=== PATIENT | female | born 1980 | race Caucasian/White ===

== ENCOUNTER 2016-07-24 17:32 | Emergency (ER) | payer MEDICAID, OTHER ==
[~2016-07-24 17:32] MED LIST: AZIT250T3 PO
[2016-07-24 18:38] LABS: BACTERIA, URINE RARE /hpf; BLOOD, URINE NEG (NEG); COMMENT (UR) CULT NOT INDICATED; CULTURE IF INDICATED CULT NOT INDICATED; GLUCOSE,URINE NEG (NEG); KETONE, URINE NEG (NEG); MUCUS URINE FEW /lpf (OCC); NITRITE,URINE NEG (NEG); PH, URINE 6.5 (5.0-8.5); SQUAMOUS EPITHELIAL CELL URINE 2 /hpf (0-5); URINE COLOR LIGHT-YELLOW (YELLW/STRAW)
--- NOTE | 2016-07-24 18:47 | PD ---
HPI Chief Complaint Vaginal spotting, pelvic pressure Date Seen: Jul 24, 2016 Time Seen: 18:30 Travel History International Travel<30 Days: No Contact w/Intl Traveler<30Days: No Known Affected Area: No History of Present Illness HPI This is 6-year-old 0-2 at 27 weeks and 1 day of gestation, EDC 10/22/16, patient presents to labor and delivery with complaints of vaginal spotting and pelvic pressure. She denies cramping, contractions, leakage of fluids and vaginal bleeding. Patient reports presence of movement. care is with Dr. Gustafson, course is significant for morbid obesity and chronic hypertension. Patient denies having sex relations before the symptoms. Bedside ultrasound is performed fetus in breech presentation , movements is noted, normal amniotic fluids Para: 2 : 4 Miscarriage: 0 : 2 History Past Medical History Narrative Medical Significant for morbid obesity and chronic hypertension Obstetric History Obstetric History Spontaneous vaginal delivery 2, termination of 2 Past Surgical History Narrative Surgical Denies Surgical History: No Previous Surgery Family History Narrative Family History Denies Family History: Negative Social History Alcohol Use: No Tobacco Use: No Substance Abuse: No Allergies-Medications (Allergen,Severity, Reaction): Coded Allergies: No Known Allergies (Unverified , 07/04/16) Home Meds Active Scripts Azithromycin 250 Mg [id number] Mg PO DIRECTED #6 TAB Ref 0 Take 2 tabs (500 mg) on day 1 then 1 tab daily x 4 days. Prov:Padmini Krishna MD 07/04/16 Review of Systems Except as stated in HPI: all other systems reviewed are Neg Genitourinary: Discharge, Other (vaginal spotting, pelvic pressure) Physical Exam Narrative GENERAL: Well-nourished, well-developed patient. SKIN: Warm and dry. HEAD: Normocephalic and atraumatic. EYES: No scleral icterus. No injection or drainage. ENT: No nasal drainage noted. Mucous membranes pink. Airway patent. NECK: Supple, trachea midline. No JVD. CARDIOVASCULAR: Regular rate and rhythm without murmurs, gallops, or rubs. RESPIRATORY: Breath sounds equal bilaterally. No accessory muscle use. BREASTS: Bilateral exam showed no masses , no retractions, no nipple discharge. ABDOMEN/GI: Abdomen soft, gravid, non-tender, bowel sounds present, no rebound, no guarding Gravid to 27 weeks size Fundal Height: 27 cm GENITOURINARY: External Genitalia: intact and normal in appearance BUS glands: Normal Cervix: Closed, long, posterior, cervix appears friable and bleeds to touch, vaginal discharge is noted, sample is sent for wet prep profile Dilatation: Closed Effacement:. 30% Station: -3 Presentation: Breech Membranes: Intact Uterine Contractions: None FHT's: Category: one Baseline: 150s Reactive: Yes Variability: Moderate Decels: None EXTREMITIES: No cyanosis or edema. BACK: Nontender without obvious deformity. No CVA tenderness. NEUROLOGICAL: Awake and alert. Motor and sensory grossly within normal limits. Five out of 5 muscle strength in all muscle groups. Normal speech. Data Data Vital Signs Reviewed: Yes Orders Vital Signs (Adult) .ON ADMISSION (07/24/16 18:11) ^ Labor Status (07/24/16 18:11) Urinalysis - C+S If Indicated (07/24/16 18:11) ^ Non Stress Test (07/24/16 18:11) ^ Hydration (07/24/16 18:11) Wet Prep Profile (07/24/16 18:35) Fibronectin (07/24/16 18:35) MDM Medical Record Reviewed: Yes Diagnosis Diagnosis: Primary Impression: 27 weeks gestation of Additional Impressions: Spotting affecting in second trimester Bacterial vaginosis Disposition: 01 DISCHARGE HOME Condition: Stable Patient Instructions: Early Labor Signs (ED), General Instructions, Labor (ED) Additional Instructions: Will treat BV with flagyl 500mg PO BID x 7 days, prescription is given to patient. Patient instructed to return to labor and delivery if increase symptoms , cramping, contractions, leakage of fluid, vaginal bleeding or decreased movements. Drink plenty of fluids. Monitor kick counts. Keep office appointment as scheduled. Pelvic rest ,nothing in the vagina , no sex. Departure Forms: Tests/Procedures Dawson Arellano MD Jul 24, 2016 18:47
[2016-07-24 19:15] VITALS: RESP 18
[2016-07-24 20:00] VITALS: RESP 16
[2016-08-19] MEDS ORDERED: ZOFR4TAB PO (03:35)
[2016-08-19] MEDS ORDERED: CALNTAB (03:35)
[2016-08-19] MEDS ORDERED: LABE300T PO (03:35)
[2016-08-19] MEDS ORDERED: BABY ASPRIN PO (03:35)
[2016-08-19] MEDS ORDERED: VENTAER INH (03:35)
[2016-08-24] MEDS ORDERED: ASPI1TAB69 PO (16:36)
== END 2016-07-24 20:18 | disposition home or self-care (01) ==
LOC: HOBED 17:32
DX: O26.852 Spotting complicating pregnancy, second trimester (principal); O23.592 Infection of other part of genital tract in pregnancy, second trimester; N76.0 Acute vaginitis; Z3A.27 27 weeks gestation of pregnancy
CPT/HCPCS: 76815; 81001; 82731; 87210

== ENCOUNTER 2016-08-10 14:06 | Emergency (ER) | payer MEDICAID ==
--- NOTE | 2016-08-10 15:41 | PD ---
HPI Chief Complaint vaginal leaking, irritating cough Date Seen: Aug 10, 2016 Time Seen: 14:58 Travel History International Travel<30 Days: No Contact w/Intl Traveler<30Days: No Known Affected Area: No History of Present Illness HPI 36 yo at 29w4d c/o vaginal leaking x 1 episode, 2 hours ago, minimal fluid. Also c/o irritating cough since March, used Tagamet without assistance Para: 2 : 5 Miscarriage: 2 History Past Medical History Narrative Medical Asthma - asymptomatic for years Obstetric History Obstetric History x 2 Past Surgical History Narrative Surgical none Family History Family History: Negative Social History Alcohol Use: No Tobacco Use: No Substance Abuse: No Allergies-Medications (Allergen,Severity, Reaction): Coded Allergies: No Known Allergies (Unverified , 07/04/16) Home Meds Active Scripts Azithromycin 250 Mg [id number] Mg PO DIRECTED #6 TAB Ref 0 Take 2 tabs (500 mg) on day 1 then 1 tab daily x 4 days. Prov:Padmini Krishna MD 07/04/16 Physical Exam Narrative GENERAL: Well-nourished, well-developed patient. SKIN: Warm and dry. HEAD: Normocephalic and atraumatic. EYES: No scleral icterus. No injection or drainage. ENT: No nasal drainage noted. Mucous membranes pink. Airway patent. NECK: Supple, trachea midline. No JVD. CARDIOVASCULAR: Regular rate and rhythm without murmurs, gallops, or rubs. RESPIRATORY: Breath sounds equal bilaterally. No accessory muscle use. BREASTS: Bilateral exam showed no masses , no retractions, no nipple discharge. ABDOMEN/GI: Abdomen soft, non-tender, bowel sounds present, no rebound, no guarding Gravid to 37 weeks size Fundal Height: [-] GENITOURINARY: External Genitalia: intact and normal in appearance BUS glands: normal Cervix: [-] Dilatation: [-] Effacement: [-] Station: [-] Presentation: [-] Membranes: amnisure negative Uterine Contractions: none FHT's: Category: 1 Baseline: 135 Reactive: moderate Variability: moderate Decels: absent EXTREMITIES: No cyanosis or edema. BACK: Nontender without obvious deformity. No CVA tenderness. NEUROLOGICAL: Awake and alert. Motor and sensory grossly within normal limits. Five out of 5 muscle strength in all muscle groups. Normal speech. Data Data Orders Vital Signs (Adult) .ON ADMISSION (08/10/16 15:25) ^ Labor Status (08/10/16 15:25) Pamg-1 Test .ONCE (08/10/16 15:25) Labs Amnisure negative MDM Plan Follow up with primary OB - consider inhaled corticosteroids if necessary, no signs of wheezing or asthma exacerbation. Consider OTC Zyrtec Diagnosis Diagnosis: Primary Impression: 29 weeks gestation of Additional Impressions: Cough Intact amniotic membranes during in third trimester Lety Emery MD Aug 10, 2016 15:41
--- NOTE | 2016-08-10 16:32 | PD ---
HPI Chief Complaint leaking fluid, cough since March Date Seen: Aug 10, 2016 Time Seen: 15:00 Travel History International Travel<30 Days: No Contact w/Intl Traveler<30Days: No Known Affected Area: No History of Present Illness HPI 36yo at 29 week gestation here c/o fluid per vagina x 1, occurring 2 hours ago, single episode. Denies contractions. Irritating cough, no wheezing, since March. Used Tagamet per Dr Gustafson for possible reflux Para: 2 : 5 Allergies-Medications (Allergen,Severity, Reaction): Coded Allergies: No Known Allergies (Unverified , 07/04/16) Home Meds Active Scripts Azithromycin 250 Mg [id number] Mg PO DIRECTED #6 TAB Ref 0 Take 2 tabs (500 mg) on day 1 then 1 tab daily x 4 days. Prov:Padmini Krishna MD 07/04/16 Physical Exam Narrative GENERAL: Well-nourished, well-developed patient. SKIN: Warm and dry. HEAD: Normocephalic and atraumatic. EYES: No scleral icterus. No injection or drainage. ENT: No nasal drainage noted. Mucous membranes pink. Airway patent. NECK: Supple, trachea midline. No JVD. CARDIOVASCULAR: Regular rate and rhythm without murmurs, gallops, or rubs. RESPIRATORY: Breath sounds equal bilaterally. No accessory muscle use. BREASTS: Bilateral exam showed no masses , no retractions, no nipple discharge. ABDOMEN/GI: Abdomen soft, non-tender, bowel sounds present, no rebound, no guarding Gravid to [-] weeks size Fundal Height: [-] GENITOURINARY: External Genitalia: intact and normal in appearance BUS glands: [-] Cervix: [-] Dilatation: [-] Effacement: [-] Station: [-] Presentation: [-] Membranes: [intact or ruptured] Uterine Contractions: [-] FHT's: Category: [-] Baseline: [-] Reactive: [-] Variability: [-] Decels: [-] EXTREMITIES: No cyanosis or edema. BACK: Nontender without obvious deformity. No CVA tenderness. NEUROLOGICAL: Awake and alert. Motor and sensory grossly within normal limits. Five out of 5 muscle strength in all muscle groups. Normal speech. Data Data Orders Vital Signs (Adult) .ON ADMISSION (08/10/16 15:25) ^ Labor Status (08/10/16 15:25) Pamg-1 Test .ONCE (08/10/16 15:25) Lety Emery MD Aug 10, 2016 16:26
[2016-08-19] MEDS ORDERED: ZOFR4TAB PO (03:35)
[2016-08-19] MEDS ORDERED: CALNTAB (03:35)
[2016-08-19] MEDS ORDERED: LABE300T PO (03:35)
[2016-08-19] MEDS ORDERED: BABY ASPRIN PO (03:35)
[2016-08-19] MEDS ORDERED: VENTAER INH (03:35)
[2016-08-24] MEDS ORDERED: ASPI1TAB69 PO (16:36)
== END 2016-08-10 15:48 | disposition home or self-care (01) ==
LOC: HOBED 14:06
DX: O26.893 Other specified pregnancy related conditions, third trimester (principal); R05 Cough; Z3A.29 29 weeks gestation of pregnancy
CPT/HCPCS: 84112; 99283

== ENCOUNTER 2016-08-17 11:51 | Emergency (ER) | payer MEDICAID ==
[2016-08-17] VITALS (7 sets, daily range): BP systolic 126–148; BP diastolic 68–110; PULSE 114–127; RESP 18
[2016-08-17 12:32] LABS: HEMATOCRIT 35.5 % (35.0-46.0); MEAN CELL VOLUME 79.2 FL (80.0-100.0); MEAN CORPUSCULAR HEMOGLOBIN 26.6 PG (27.0-34.0); MEAN CORPUSCULAR HGB CONC 33.6 % (32.0-36.0); PLATELET COUNT 276 TH/MM3 (150-450); RED BLOOD COUNT 4.49 MIL/MM3 (4.00-5.30); RED CELL DISTRIBUTION WIDTH 14.4 % (11.6-17.2); REVIEW FLAG FINAL; WHITE BLOOD COUNT 12.1 TH/MM3 (4.0-11.0)
[2016-08-17 12:43] LABS: BLOOD, URINE NEG (NEG); CALCIUM OXALATE CRYSTALS,URINE OCC /hpf; GLUCOSE,URINE NEG (NEG); KETONE, URINE TRACE mg/dL (NEG); MUCUS URINE MANY /lpf (OCC); NITRITE,URINE NEG (NEG); SQUAMOUS EPITHELIAL CELL URINE 24 /hpf (0-5); URINE COLOR YELLOW (YELLW/STRAW)
[2016-08-17 12:47] LABS: BACTERIA, URINE MOD /hpf; COMMENT (UR) CULTURE INDICATED; CULTURE IF INDICATED CULTURE INDICATED
[2016-08-17 12:50] LABS: ALT (GPT) 18 U/L (10-53); ANION GAP 12 MEQ/L (5-15); AST (GOT) 7 U/L (15-37); BICARBONATE 20.4 MEQ/L (21.0-32.0); BLOOD UREA NITROGEN 6 MG/DL (7-18); CHLORIDE 105 MEQ/L (98-107); GLOMERULAR FILTRATION RATE 120 ML/MIN (>89); POTASSIUM 3.9 MEQ/L (3.5-5.1); SODIUM (NA) 137 MEQ/L (136-145); URIC ACID 2.7 MG/DL (2.6-6.0)
[2016-08-17 12:52] LABS: ALKALINE PHOSPHATASE 71 U/L (45-117); TOTAL BILIRUBIN ADULT 0.2 MG/DL (0.2-1.0)
--- NOTE | 2016-08-17 13:09 | PD ---
HPI Travel History International Travel<30 Days: No Contact w/Intl Traveler<30Days: No Known Affected Area: No History of Present Illness HPI This patient is a 36-year-old 5 para 2021 EDC is October 22, 2016 presently at 30 weeks and 4 days she was sent in from Dr. Mike office for a preeclamptic workup as her urine demonstrated a large amount of protein patient presently has hypertension and is on labetalol 400 mg by mouth twice a day Care she states has been unremarkable she has been treated for urinary tract infection in the past Presently no ruptured membranes no vaginal bleeding no alanis contractions States she has had a headache off and on mild headache it does respond to Tylenol yesterday had floaters in front of her eyes the baby is active History Past Medical History Narrative Medical No known drug allergies history of hypertension Obstetric History Obstetric History First baby born April 25, 1998 female infant weight 5 lbs. 5 oz. states she was born vaginally at 30 weeks patient had preeclampsia with this Second baby born [birth year], 1999 female weight 7 lbs. 8 oz. vaginal delivery uncomplicated Past Surgical History Surgical History: No Previous Surgery Family History Narrative Family History Both parents past with cancer Social History Alcohol Use: No Tobacco Use: No Substance Abuse: No Allergies-Medications (Allergen,Severity, Reaction): Coded Allergies: No Known Allergies (Unverified , 07/04/16) Home Meds Active Scripts Azithromycin 250 Mg [id number] Mg PO DIRECTED #6 TAB Ref 0 Take 2 tabs (500 mg) on day 1 then 1 tab daily x 4 days. Prov:Padmini Krishna MD 07/04/16 Review of Systems General / Constitutional: No: Fever, Weight Gain, Weight Loss, Chills, Other Eyes: Other (states she did see floaters yesterday) HENT: Headaches (headache has responded to Tylenol) Cardiovascular: No: Irregular Rhythm, Chest Pain or Discomfort, Palpitations, Tachycardia, Syncope, Varicosities, Edema, Cyanosis, Other Respiratory: Cough (patient presently has a cold) Gastrointestinal: No: Nausea, Vomiting, Diarrhea, Abdominal Pain, Hematemesis, Hematochezia, Constipation, Changes in Bowel Habits, Indigestion, Loss of Appetite, Other Genitourinary: No: Urgency, Frequency, Dysuria, Nocturia, Hematuria, Decreased Urinary Output, Oliguria, Hesitancy, Dribbling, Incontinence, Pelvic Pain, Dyspareunia, Discharge, Menorrhagia, Vaginal Bleeding, Other Musculoskeletal: No: Limited ROM, Weakness, Cramping, Edema, Pain, Other Skin: No Rash, No Itching, No Dryness, No Lumps, No Change in Pigmentation, No Change in Nails, No Alopecia, No Lesions, No Breast Lumps, No Breast Tenderness , No Breast Swelling, No Other Neurologic: No: Weakness, Dizziness, Syncope, Focal Abnormalities, Coordination Problem, Headache, Slurred Speech, Seizures, Other Physical Exam Narrative GENERAL: Well-nourished, well-developed patient. Alert oriented 3 and cooperative in no acute distress EYES: No scleral icterus. No injection or drainage. Conjunctiva are pink ENT: No nasal drainage noted. Mucous membranes pink. Airway patent. Mucous membranes are moist CARDIOVASCULAR: Regular rate and rhythm without murmurs, gallops, or rubs. RESPIRATORY: Breath sounds equal bilaterally. No accessory muscle use. ABDOMEN/GI: Gravid consistent with stated gestational age, soft nontender no epigastric right upper quadrant tenderness no palpable contractions Gravid to [-] weeks size 30 weeks size Fundal Height: [-] GENITOURINARY: Pelvic exam is deferred as patient has no complaints of ruptured membranes or labor External Genitalia: intact and normal in appearance Membranes: [intact Uterine Contractions: [-]0 FHT's: Category: [-]1 Baseline: [-] 140 Reactive: [-] + Variability: [-] Moderate Decels: [-] 0 EXTREMITIES: No cyanosis or edema. 2+ reflexes NEUROLOGICAL: Awake and alert. Motor and sensory grossly within normal limits. Five out of 5 muscle strength in all muscle groups. Normal speech. Data Data Vital Signs Reviewed: Yes (initial blood pressure 133/91 patient tilted to her left side 137/68) Orders Vital Signs (Adult) .ON ADMISSION (08/17/16 12:04) ^ Labor Status (08/17/16 12:04) Urinalysis - C+S If Indicated (08/17/16 12:04) ^ Hydration (08/17/16 12:04) Cbc No Diff, Includes Plts (08/17/16 12:04) Comprehensive Metabolic Panel (08/17/16 12:04) Uric Acid (08/17/16 12:04) Urine Culture (08/17/16 12:05) Labs Laboratory Tests Test 08/17/16 08/17/16 12:05 12:10 Urine Color YELLOW Urine Turbidity HAZY Urine pH 6.0 Urine Specific [place] 1.033 Urine Protein 100 Urine Glucose (UA) NEG Urine Ketones TRACE Urine Occult Blood NEG Urine Nitrite NEG Urine Bilirubin NEG Urine Urobilinogen 2.0 Urine Leukocyte Esterase SMALL Urine RBC 1 Urine WBC 8 Urine Squamous Epithelial 24 Cells Urine Calcium Oxalate Crystals OCC Urine Bacteria MOD Urine Mucus MANY Microscopic Urinalysis Comment CULTURE INDICATED White Blood Count 12.1 Red Blood Count 4.49 Hemoglobin 11.9 Hematocrit 35.5 Mean Corpuscular Volume 79.2 Mean Corpuscular Hemoglobin 26.6 Mean Corpuscular Hemoglobin 33.6 Concent Red Cell Distribution Width 14.4 Platelet Count 276 Mean Platelet Volume 9.2 Sodium Level 137 Potassium Level 3.9 Chloride Level 105 Carbon Dioxide Level 20.4 Anion Gap 12 Blood Urea Nitrogen 6 Creatinine 0.57 Estimat Glomerular Filtration 120 Rate Random Glucose 114 Uric Acid 2.7 Calcium Level 8.8 Total Bilirubin 0.2 Aspartate Amino Transf 7 (AST/SGOT) Alanine Aminotransferase 18 (ALT/SGPT) Alkaline Phosphatase 71 Total Protein 6.9 Albumin 2.7 Date/Time Procedure Status Source Growth 08/17/16 12:05 Urine Culture Received Urine Clean Catch Pending MDM Medical Record Reviewed: No Interpretation(s) 36-year-old at 30 weeks and 4 days Not in labor History of hypertension on labetalol 400 mg by mouth twice a day Obesity Culture indicated on urinalysis URI by history Plan Blood pressure every 15 minutes on left tilt Rule out superimposed preeclampsia on chronic hypertension We'll repeat the 24-hour urine for protein Discussed with Dr. Sj Gustafson in to see the patient states she may be discharged home Will begin a 24-hour urine tomorrow and bring into the office on Tuesday Diagnosis Diagnosis: Primary Impression: with 30 completed weeks gestation Additional Impressions: Chronic hypertension in obstetric context in second trimester Obesity Disposition: 01 DISCHARGE HOME Condition: Stable Patient Instructions: General Instructions Departure Forms: Tests/Procedures Jessie Jeff MD Aug 17, 2016 13:09
[2016-08-17] MEDS ORDERED: BETAMETHASONE SOD PHOS/ACETATE SUSP 30 MG/5 ML VIAL IM SCH (14:00)
[2016-08-17] MEDS ORDERED: BETAMETHASONE SOD PHOS/ACETATE SUSP 30 MG/5 ML VIAL IM ONE (14:00)
[2016-08-24] MEDS ORDERED: ASPI1TAB69 PO (16:36)
== END 2016-08-17 14:49 | disposition home or self-care (01) ==
LOC: HOBED 11:51
DX: O09.523 Supervision of elderly multigravida, third trimester (principal); O10.913 Unspecified pre-existing hypertension complicating pregnancy, third trimester; R80.9 Proteinuria, unspecified; Z3A.30 30 weeks gestation of pregnancy
CPT/HCPCS: 36415; 80053; 81001; 84550; 85027; 87086; 96372; 99284; J0702

== ENCOUNTER → 2016-08-18 | Outpatient (CLI) | payer MEDICAID ==
[~2016-08-18] MED LIST changes: +ASPI1TAB69 PO; +BABY ASPRIN PO; +BETAMETHASONE SOD PHOS/ACETATE SUSP 30 MG/5 ML VIAL IM ONE; +CALNTAB; +HYDR-3533 PO; +IBUP-232 PO; +LABE300T PO; +OXYC1TAB63 PO; +VENTAER INH; +ZOFR4TAB PO
== END ==
LOC: HPND 14:36
PROVIDERS: ATTEND Obstetrics & Gynecology
DX: O60.03 Preterm labor without delivery, third trimester (principal)
CPT/HCPCS: 96372; J0702

== ENCOUNTER 2016-08-19 01:37 | Observation (INO) | payer MEDICAID ==
[~2016-08-19] VITALS: Ht 157.5 cm; Wt 113.4 kg
[2016-08-19] VITALS (160 sets, daily range): BP systolic 129–162; BP diastolic 67–122; PULSE 62–119; RESP 18–34; TEMP 97.9–98.3; O2SAT 94–100
[~2016-08-19 01:37] MED LIST changes: -ASPI1TAB69 PO; -BABY ASPRIN PO; -BETAMETHASONE SOD PHOS/ACETATE SUSP 30 MG/5 ML VIAL IM ONE; -CALNTAB; -HYDR-3533 PO; -IBUP-232 PO; -LABE300T PO; -OXYC1TAB63 PO; -VENTAER INH; -ZOFR4TAB PO
--- NOTE | 2016-08-19 02:16 | PD ---
HPI Chief Complaint Elevated BP at home, JETT/ blurry vision. Date Seen: Aug 19, 2016 Travel History International Travel<30 Days: No Contact w/Intl Traveler<30Days: No Known Affected Area: No History of Present Illness HPI with [facility] 10/21/16, history of CHTN presents with reported elevated BP at home ( 160s/100s). Patient also reports JETT and seeing spots intermittently since yesterday. Did not try Tylenol. Currently taking Labetalol 400mg bid. Denies other problems this . Reports recently completing 24 hour urine, results unknown to patient. Para: 2 : 5 Last Menstrual Period: Aug 19, 2016 History Past Medical History Narrative Medical HTN, Asthma Obstetric History Obstetric History 1 FT / 1 PT - at 28 weeks complicated by Pre Eclampsia Past Surgical History Surgical History: No Previous Surgery Family History Narrative Family History Significant for HTN, CVA, Hyperlipidemia, DM, Renal disease, Colon Cancer Family History: Negative Social History Alcohol Use: No Tobacco Use: No Substance Abuse: No Allergies-Medications (Allergen,Severity, Reaction): Coded Allergies: No Known Allergies (Unverified , 07/04/16) Home Meds Active Scripts Azithromycin 250 Mg [id number] Mg PO DIRECTED #6 TAB Ref 0 Take 2 tabs (500 mg) on day 1 then 1 tab daily x 4 days. Prov:Padmini Krishna MD 07/04/16 Review of Systems Eyes: Blurred Vision HENT: Headaches Physical Exam Narrative GENERAL: Well-nourished, well-developed patient. SKIN: Warm and dry. HEAD: Normocephalic and atraumatic. EYES: No scleral icterus. No injection or drainage. ENT: No nasal drainage noted. Mucous membranes pink. Airway patent. NECK: Supple, trachea midline. No JVD. CARDIOVASCULAR: Regular rate and rhythm without murmurs, gallops, or rubs. RESPIRATORY: Breath sounds equal bilaterally. No accessory muscle use. BREASTS: Bilateral exam showed no masses , no retractions, no nipple discharge. ABDOMEN/GI: Abdomen soft, non-tender, bowel sounds present, no rebound, no guarding Gravid to [-] weeks size Fundal Height: [-] GENITOURINARY: External Genitalia: intact and normal in appearance BUS glands: [-] Cervix: Deferred Dilatation: [-] Effacement: [-] Station: [-] Presentation: [-] Membranes: [intact or ruptured] Uterine Contractions: [-] FHT's: Category: [1] Baseline: [130s] Reactive: [yes] Variability: [moderate] Decels: [none] EXTREMITIES: No cyanosis or edema. 2+ DTR Bilaterally BACK: Nontender without obvious deformity. No CVA tenderness. NEUROLOGICAL: Awake and alert. Motor and sensory grossly within normal limits. Five out of 5 muscle strength in all muscle groups. Normal speech. Data Data Vital Signs Reviewed: Yes Orders Pre Eclampsia labs Labs records reviewed. PNL: O+/negative, Rubella- Non immune, Hep B- negative, RPR- NR, HIV- negative MDM Interpretation(s) at 30w 6d with CHTN, Asthma with elevated BPs/JETT/visual changes Plan Will admit. Pre Eclampsia labs ordered. Will begin [address] Carmona notified. Diagnosis Diagnosis: Primary Impression: 30 WEEKS GESTATION OF Additional Impressions: Hypertension affecting in third trimester Asthma affecting , antepartum Karis Rogers MD Aug 19, 2016 02:16
[2016-08-19 02:39] LABS: BLOOD, URINE NEG (NEG); COMMENT (UR) CULT NOT INDICATED; CULTURE IF INDICATED CULT NOT INDICATED; GLUCOSE,URINE 70 mg/dL (NEG); KETONE, URINE NEG (NEG); MUCUS URINE FEW /lpf (OCC); NITRITE,URINE NEG (NEG); PH, URINE 6.5 (5.0-8.5); SQUAMOUS EPITHELIAL CELL URINE 1 /hpf (0-5); URINE COLOR LIGHT-YELLOW (YELLW/STRAW)
[2016-08-19 02:45] LABS: BASOPHIL % 0.1 % (0.0-2.0); HEMO FLAGS DIFF FINAL; LYMPH % 10.4 % (9.0-44.0); LYMPHOCYTE # 1.7 TH/MM3 (1.0-4.8); MEAN CELL VOLUME 80.4 FL (80.0-100.0); MEAN CORPUSCULAR HEMOGLOBIN 26.1 PG (27.0-34.0); MEAN CORPUSCULAR HGB CONC 32.5 % (32.0-36.0); NEUT % 83.5 % (16.0-70.0); PLATELET COUNT 268 TH/MM3 (150-450); RED BLOOD COUNT 3.98 MIL/MM3 (4.00-5.30); RED CELL DISTRIBUTION WIDTH 14.4 % (11.6-17.2); WHITE BLOOD COUNT 16.7 TH/MM3 (4.0-11.0)
[2016-08-19 02:47] LABS: URIC ACID 2.6 MG/DL (2.6-6.0)
[2016-08-19] MEDS ORDERED: SODIUM CHLORIDE 0.9% FLUSH 5 ML FLUSH IVF PRN (03:00)
[2016-08-19] MEDS ORDERED: VENTAER INH ×2 (03:35)
[2016-08-19] MEDS ORDERED: BABY ASPRIN PO ×2 (03:35)
[2016-08-19] MEDS ORDERED: LABE300T PO ×2 (03:35)
[2016-08-19] MEDS ORDERED: ZOFR4TAB PO ×2 (03:35)
[2016-08-19] MEDS ORDERED: CALNTAB ×2 (03:35)
[2016-08-19 04:28] LABS: ALT (GPT) 17 U/L (10-53); ANION GAP 13 MEQ/L (5-15); AST (GOT) 7 U/L (15-37); BICARBONATE 18.2 MEQ/L (21.0-32.0); BLOOD UREA NITROGEN 8 MG/DL (7-18); CHLORIDE 106 MEQ/L (98-107); GLOMERULAR FILTRATION RATE 128 ML/MIN (>89); POTASSIUM 4.1 MEQ/L (3.5-5.1); SODIUM (NA) 137 MEQ/L (136-145)
[2016-08-19 04:29] LABS: ALKALINE PHOSPHATASE 65 U/L (45-117); TOTAL BILIRUBIN ADULT 0.1 MG/DL (0.2-1.0)
[2016-08-19 08:17] LABS: BLOOD GAS BASE EXCESS -6.4 mmol/L (-2-2); BLOOD GAS CARBOXYHEMOGLOBIN 1.3 % (0-4); BLOOD GAS HCO3 18 mmol/L (22-26); BLOOD GAS METHEMOGLOBIN 0.9 % (0-2); BLOOD GAS O2 HGB SATURATION 96 % (90-100); BLOOD GAS OXYGEN CONTENT 14.6 Vol % (12.0-20.0); BLOOD GAS PCO2 29 mmHg (38-42); BLOOD GAS PO2 99 mmHg (61-120); BLOOD GAS TOTAL HGB 10.7 G/DL (12.0-16.0); TEMP CORR TO 98.6
[2016-08-19 08:18] LABS: CRITICAL VALUE NO; DRAW SITE RT RADIAL; FIO2 21 %; NUMBER OF ARTERIAL PUNCTURES 1; STAT YES; ULNAR PULSE PRESENT
[2016-08-19] MEDS: SODIUM CHLORIDE 0.9% FLUSH 5 ML FLUSH IVF SCH ×2 (09:00→21:00)
[2016-08-19] MEDS: MULTIVIT/MIN/PREN/FOL AC/IRON PRENATAL TAB PO SCH (09:00)
--- NOTE | 2016-08-19 09:02 | PD.OB.ANTE ---
Subjective Diagnosis: (1) Hypertension affecting in third trimester (2) Asthma affecting , antepartum (3) 30 weeks gestation of Diagnosis: Principal Interval History Called to see patient per request of Dr. Al secondary to increased respiratory rate and elevated BP. Patient without new complaints. Reports JETT/ visual changes improved. Patient denies SOB. No chest pain, no N/V. No other complaints at this time. Patient reports similar episodes of increased RR at home that typically resolve with rest. Reports good FM. Denies contractions/LOF/VB. Objective Vital Signs Vital Signs Date Time Temp Pulse Resp B/P Pulse Ox O2 Delivery O2 Flow Rate FiO2 08/19/16 08:38 32 08/19/16 08:37 115 144/72 08/19/16 08:35 111 08/19/16 08:30 110 08/19/16 08:25 111 08/19/16 08:20 108 08/19/16 08:10 114 08/19/16 07:57 31 08/19/16 07:55 106 08/19/16 07:50 104 08/19/16 07:45 107 08/19/16 07:40 107 08/19/16 07:35 105 08/19/16 07:30 107 08/19/16 07:29 34 08/19/16 07:27 98.2 08/19/16 07:26 108 162/93 08/19/16 05:59 20 08/19/16 05:24 101 142/74 08/19/16 03:45 20 08/19/16 03:45 18 08/19/16 03:44 107 156/79 08/19/16 03:25 103 137/122 Lab & Micro Results Test 08/19/16 08/19/16 08/19/16 08/19/16 01:50 02:15 05:06 08:05 Urine Color LIGHT-YELLOW Urine Turbidity CLEAR Urine pH 6.5 Urine Specific [place] 1.014 Urine Protein NEG mg/dL Urine Glucose (UA) 70 mg/dL Urine Ketones NEG mg/dL Urine Occult Blood NEG Urine Nitrite NEG Urine Bilirubin NEG Urine Urobilinogen LESS THAN 2.0 MG/DL Urine Leukocyte Esterase NEG Urine WBC 1 /hpf Urine Squamous Epithelial 1 /hpf Cells Urine Mucus FEW /lpf Microscopic Urinalysis Comment CULT NOT INDICATED White Blood Count 16.7 TH/MM3 Red Blood Count 3.98 MIL/MM3 Hemoglobin 10.4 GM/DL Hematocrit 32.0 % Mean Corpuscular Volume 80.4 FL Mean Corpuscular Hemoglobin 26.1 PG Mean Corpuscular Hemoglobin 32.5 % Concent Red Cell Distribution Width 14.4 % Platelet Count 268 TH/MM3 Mean Platelet Volume 9.2 FL Neutrophils (%) (Auto) 83.5 % Lymphocytes (%) (Auto) 10.4 % Monocytes (%) (Auto) 6.0 % Eosinophils (%) (Auto) 0.0 % Basophils (%) (Auto) 0.1 % Neutrophils # (Auto) 14.0 TH/MM3 Lymphocytes # (Auto) 1.7 TH/MM3 Monocytes # (Auto) 1.0 TH/MM3 Eosinophils # (Auto) 0.0 TH/MM3 Basophils # (Auto) 0.0 TH/MM3 CBC Comment DIFF FINAL Differential Comment Sodium Level 137 MEQ/L Potassium Level 4.1 MEQ/L Chloride Level 106 MEQ/L Carbon Dioxide Level 18.2 MEQ/L Anion Gap 13 MEQ/L Blood Urea Nitrogen 8 MG/DL Creatinine 0.54 MG/DL Estimat Glomerular Filtration 128 ML/MIN Rate Random Glucose 145 MG/DL Uric Acid 2.6 MG/DL Calcium Level 8.3 MG/DL Total Bilirubin 0.1 MG/DL Aspartate Amino Transf 7 U/L (AST/SGOT) Alanine Aminotransferase 17 U/L (ALT/SGPT) Alkaline Phosphatase 65 U/L Lactate Dehydrogenase 114 U/L Total Protein 6.3 GM/DL Albumin 2.6 GM/DL Blood Type O POSITIVE Blood Gas Puncture Site RT RADIAL Blood Gas Patient Temperature 98.6 Blood Gas HCO3 18 mmol/L Blood Gas Base Excess -6.4 mmol/L Blood Gas Oxygen Saturation 96 % Arterial Blood pH 7.40 Arterial Blood Partial 29 mmHg Pressure CO2 Arterial Blood Partial 99 mmHg Pressure O2 Arterial Blood Oxygen Content 14.6 Vol % Arterial Blood 1.3 % Carboxyhemoglobin Arterial Blood Methemoglobin 0.9 % Blood Gas Hemoglobin 10.7 G/DL Oxygen Delivery Device Blood Gas Inspired Oxygen 21 % Physical Exam GENERAL: Well-nourished, well-developed patient. CARDIOVASCULAR: Regular rate and rhythm without murmurs, gallops, or rubs. RESPIRATORY: Breath sounds equal bilaterally. No accessory muscle use. CTA bilaterally ABDOMEN/GI: Abdomen soft, non-tender. Fundus: [-] GENITOURINARY: External Genitalia: intact and normal in appearance Cervix: [-] Dilatation: [-] Effacement: [-] Station: [-] Presentation: [-] Membranes: [-] Uterine Contractions: [none] FHT's: Category: [1] Baseline: [150s] Reactive: [-] Variability: [moderate] Decels: [none] EXTREMITIES: No cyanosis or edema, non-tender, without signs of DVT. Assessment and Plan Assessment and Plan Continue pulse Ox. Chest XRay. Patient's current status d/wDr. Sj, to continue patient's care. Karis Rogers MD Aug 19, 2016 09:02
[2016-08-19] MEDS ORDERED: ZOLPIDEM TARTRATE 5 MG TAB PO ONE (09:15)
[2016-08-19] MEDS ORDERED: ONDANSETRON HCL 4 MG/2 ML VIAL IV PUSH ONE (09:15)
[2016-08-19] MEDS ORDERED: LABETALOL HCL 200 MG TAB PO SCH (09:45)
[2016-08-19] MEDS: ONDANSETRON ODT 4 MG TAB PO PRN (09:47)
--- NOTE | 2016-08-19 10:07 | RADRPT ---
EXAM DATE/TIME: 08/19/2016 08:02 [facility] COMPARISON: CHEST SINGLE AP, July 04, 2016, 16:36. INDICATIONS : Shortness of breath. MEDICAL HISTORY : Hypertension. Asthma. SURGICAL HISTORY : None. ENCOUNTER: Initial ACUITY: 2 weeks PAIN SCORE: 0/10 LOCATION: Bilateral chest FINDINGS: A single view of the chest demonstrates the lungs to be symmetrically aerated without evidence of mas s, infiltrate or effusion. The cardiomediastinal contours are unremarkable. Osseous structures are intact. CONCLUSION: No acute disease. Dex Brown MD on August 19, 2016 at 10:06 Board Certified Radiologist. This report was verified electronically.
--- NOTE | 2016-08-19 13:36 | HHI.PR ---
Subjective Remarks Doing better this afternoon. Did not take her inhaler today. Good FM. No ROM or bleeding. Objective Vital Signs Date Time Temp Pulse Resp B/P Pulse Ox O2 Delivery O2 Flow Rate FiO2 08/19/16 13:10 115 100 08/19/16 13:05 113 100 08/19/16 13:00 107 28 132/85 99 08/19/16 12:55 109 99 08/19/16 12:50 96 08/19/16 12:50 103 08/19/16 12:45 96 08/19/16 12:45 103 08/19/16 12:40 103 08/19/16 12:40 96 08/19/16 12:35 101 08/19/16 12:35 96 08/19/16 12:30 98 08/19/16 12:30 101 08/19/16 12:25 101 97 08/19/16 12:20 103 96 08/19/16 12:15 102 97 08/19/16 12:10 97 96 08/19/16 12:05 95 94 08/19/16 12:00 98 94 08/19/16 11:50 98 96 08/19/16 11:47 28 08/19/16 11:46 32 08/19/16 11:45 104 131/84 08/19/16 11:45 99 08/19/16 11:35 108 08/19/16 11:35 99 08/19/16 11:30 105 08/19/16 11:30 97 08/19/16 11:25 103 08/19/16 11:25 97 08/19/16 11:20 97 08/19/16 11:20 105 08/19/16 11:15 98 08/19/16 11:15 104 08/19/16 11:10 104 08/19/16 11:10 99 08/19/16 11:05 104 08/19/16 11:05 100 08/19/16 11:00 100 08/19/16 11:00 104 08/19/16 10:55 100 08/19/16 10:55 104 08/19/16 10:50 104 08/19/16 10:50 100 08/19/16 10:45 100 08/19/16 10:45 104 08/19/16 10:40 100 08/19/16 10:40 104 08/19/16 10:38 25 08/19/16 10:35 106 9 10:35 100 08/19/16 10:30 100 08/19/16 10:30 108 17 10:25 100 917 10:25 108 917 10:22 28 08/19/16 10:20 101 08/19/16 10:20 100 08/19/16 10:15 100 08/19/16 10:15 104 08/19/16 10:10 101 08/19/16 10:10 100 08/19/16 10:05 103 08/19/16 10:05 100 08/19/16 10:00 100 08/19/16 10:00 102 08/19/16 09:55 100 08/19/16 09:55 119 08/19/16 09:51 32 08/19/16 09:50 100 08/19/16 09:50 113 08/19/16 09:46 105 158/88 08/19/16 09:45 110 08/19/16 09:45 100 08/19/16 09:40 102 08/19/16 09:40 98 08/19/16 09:35 98 08/19/16 09:35 100 08/19/16 09:30 101 08/19/16 09:30 99 08/19/16 09:25 99 08/19/16 09:25 100 08/19/16 09:20 99 08/19/16 09:20 97 08/19/16 09:15 97 08/19/16 09:15 98 08/19/16 09:10 100 08/19/16 09:10 105 08/19/16 09:05 111 08/19/16 09:05 100 08/19/16 08:50 100 08/19/16 08:50 110 08/19/16 08:45 108 08/19/16 08:45 100 08/19/16 08:40 116 08/19/16 08:40 100 08/19/16 08:38 32 08/19/16 08:37 115 144/72 08/19/16 08:35 111 08/19/16 08:35 100 08/19/16 08:30 110 08/19/16 08:30 99 08/19/16 08:25 111 08/19/16 08:25 99 08/19/16 08:20 108 08/19/16 08:20 98 08/19/16 08:10 100 08/19/16 08:10 114 08/19/16 07:57 31 08/19/16 07:55 97 08/19/16 07:55 106 08/19/16 07:50 104 08/19/16 07:50 97 08/19/16 07:45 97 08/19/16 07:45 107 08/19/16 07:40 107 08/19/16 07:40 97 08/19/16 07:35 98 08/19/16 07:35 105 08/19/16 07:30 107 08/19/16 07:30 99 08/19/16 07:29 34 08/19/16 07:27 98.2 08/19/16 07:26 108 162/93 08/19/16 05:59 20 08/19/16 05:24 101 142/74 08/19/16 03:45 20 08/19/16 03:45 18 08/19/16 03:44 107 156/79 08/19/16 03:25 103 137/122 Result Diagram: 08/19/1621408/19/16214 Other Results WDWN no acute distress. Chest is perfectly clear good air movement. CV Borderline tachycardic Abd is gravid and NT Ext Small LE edema Assessment and Plan Assessment and Plan IUP @ 30w 6d Chronic hypertension..Possible early pre eclampsia. Will increase her labetalol to 600mg bid. Follow BP now. Check her labs in the am. Tachypnea She does have asthma and will give her a breathing treatment as her blood gas is good I think she is just anxious. Anxiety. Will try to get her some sleep tonite and re evaluate the labs and her in the morning. Elizabeth Gustafson MD Aug 19, 2016 13:36
[2016-08-19] MEDS ORDERED: LABETALOL HCL 100 MG TAB PO ONE (15:15)
[2016-08-19] MEDS: RESP: ALBUTEROL 1.25 MG/3 ML NEB (PRN) NEB (15:25)
[2016-08-19] MEDS ORDERED: ZOLPIDEM TARTRATE 5 MG TAB PO PRN (18:45)
[2016-08-19] MEDS: ASPIRIN 81 MG CHEW TAB PO SCH (19:13)
[2016-08-19] MEDS: LABETALOL HCL 300 MG TAB PO SCH (21:29)
[2016-08-20] VITALS (15 sets, daily range): BP systolic 135–156; BP diastolic 66–89; PULSE 100–113; RESP 20; TEMP 98.7; O2SAT 99–100
[2016-08-20] MEDS ORDERED: ACETAMINOPHEN 325 MG TAB PO ONE
[2016-08-20] MEDS ORDERED: ACETAMINOPHEN 325 MG TAB PO PRN (04:00)
[2016-08-20 05:53] LABS: AUTOMATED NEUTROPHIL # 9.2 TH/MM3 (1.8-7.7); BASOPHIL % 0.1 % (0.0-2.0); EOSINOPHIL # 0.1 TH/MM3 (0-0.4); EOSINOPHIL % 0.9 % (0.0-4.0); HEMATOCRIT 30.3 % (35.0-46.0); HEMO FLAGS DIFF FINAL; LYMPH % 22.2 % (9.0-44.0); LYMPHOCYTE # 3.1 TH/MM3 (1.0-4.8); MEAN CELL VOLUME 80.3 FL (80.0-100.0); MEAN CORPUSCULAR HEMOGLOBIN 26.3 PG (27.0-34.0); MEAN CORPUSCULAR HGB CONC 32.8 % (32.0-36.0); NEUT % 65.8 % (16.0-70.0); PLATELET COUNT 259 TH/MM3 (150-450); RED BLOOD COUNT 3.78 MIL/MM3 (4.00-5.30); RED CELL DISTRIBUTION WIDTH 14.6 % (11.6-17.2)
[2016-08-20 06:20] LABS: ALKALINE PHOSPHATASE 67 U/L (45-117); ALT (GPT) 13 U/L (10-53); ANION GAP 11 MEQ/L (5-15); AST (GOT) 5 U/L (15-37); BICARBONATE 21.9 MEQ/L (21.0-32.0); BLOOD UREA NITROGEN 8 MG/DL (7-18); CHLORIDE 105 MEQ/L (98-107); GLOMERULAR FILTRATION RATE 162 ML/MIN (>89); POTASSIUM 3.9 MEQ/L (3.5-5.1); SODIUM (NA) 138 MEQ/L (136-145); TOTAL BILIRUBIN ADULT 0.1 MG/DL (0.2-1.0); URIC ACID 2.6 MG/DL (2.6-6.0)
[2016-08-20] MEDS: RESP: ALBUTEROL 1.25 MG/3 ML NEB (PRN) NEB (06:34)
[2016-08-20] MEDS ORDERED: LABE300T PO (08:30)
[2016-08-20] MEDS ORDERED: HYDR-3533 PO (08:30)
[2016-08-20] MEDS: ASPIRIN 81 MG CHEW TAB PO SCH (08:34)
[2016-08-20] MEDS: MULTIVIT/MIN/PREN/FOL AC/IRON PRENATAL TAB PO SCH (08:34)
[2016-08-20] MEDS: ONDANSETRON ODT 4 MG TAB PO PRN (08:34)
[2016-08-20] MEDS: LABETALOL HCL 300 MG TAB PO SCH (08:34)
--- NOTE | 2016-08-20 09:01 | MH ---
cc: MARYSE SEGOVIA DATE OF ADMISSION: 08/19/2016 HISTORY OF PRESENT ILLNESS This is a 36-year-old female, 5, para 2, with estimated date of confinement of 10/21/2016, at 30+ weeks. She has chronic hypertension with reported elevated blood pressures at home 160s/100. She also reported a headache and some scotoma. She did not try Tylenol or any other medication. She is currently taking labetalol 200 mg, one p.o. b.i.d. She denies any other problems with this . She had a 24-hour urine which revealed 200 mg of protein that she turned in yesterday. She is being admitted to the hospital for evaluation of preeclampsia. PAST OB HISTORY She is para 1-1-2-2. She had one premature baby, one full-term and two SABs. She had a vaginal delivery at 28 weeks complicated by preeclampsia. PAST BODY HANGER HISTORY Her Pap smear was negative in October 2015. PAST SURGICAL HISTORY Negative. PAST MEDICAL HISTORY 1. Chronic hypertension. 2. Asthma. FAMILY HISTORY Her family history is remarkable for hypertension, hyperlipidemia, diabetes, renal disease and CVA. SOCIAL HISTORY She does not drink, smoke or take drugs. ALLERGIES No known drug allergies. MEDICATIONS Current medications are: 1. Labetalol 200 mg, one p.o. b.i.d. 2. Baby aspirin, one p.o. q. day. 3. vitamins, one p.o. q. day. REVIEW OF SYSTEMS She has a mild headache, not unusual in any way. She did have some scotoma which has resolved. She has no shortness of breath or chest pain or pressure. She reports good movement. No rupture of membranes or bleeding. PHYSICAL EXAMINATION GENERAL: A well-developed, well-nourished female in no acute distress resting comfortably in her bed. VITAL SIGNS: Blood pressure 132/85, pulse 107, respirations 28. Pulse oximetry is 99-100. HEENT: Normocephalic, atraumatic. NECK: Supple. Trachea is midline. CHEST: Clear to auscultation in all areas. HEART: Slightly tachycardic without any significant murmur. ABDOMEN: The abdomen is gravid, nontender. The fundus is nontender. The feels appropriate height. PELVIC: Exam is deferred. EXTREMITIES: There is slight lower extremity edema. She is really not edematous. DTRs are +2 and equal. LABORATORY DATA Her laboratory workup reveals a white count of 16, hemoglobin of 10, hematocrit oft 32. Her AST and ALT are normal. Her platelets are normal. Her uric acid is 2.6. Urine is negative for protein. She does have a little glucose. ASSESSMENT AND PLAN 1. Intrauterine at 30+ weeks. 2. Chronic hypertension, rule out pre and post preeclampsia. I would continue her medications, give her bed rest. She is extremely anxious and tired and this may be contributing. She does have tachycardia and I think we should run a TSH. Will keep her overnight and make sure that she is okay and see how she feels. 3. Iron deficient anemia; this is mild. May consider giving her some iron while she is here. 4. Advanced maternal age. Will follow her carefully. R. MD SOMMER Hernandez/CHELSIE /8:14 AM /8:40 AM
[2016-08-20 09:27] LABS: URINE TOTAL PROTEIN TIMED 14.2 MG/DL
--- NOTE | 2016-08-20 09:56 | HHI.DCPOC ---
Discharge Care Plan Diagnosis: (1) Hypertension affecting in third trimester (2) with 30 completed weeks gestation Report Symptoms to Your Doctor -Temperate above 100.5 degrees -Redness, of incision or excessive or foul smelling drainage -Unusual pain or calf pain -Increased vaginal bleeding -Painful or difficulty urinating -Feelings of extreme sadness or anxiety after 2 weeks Goals to Promote Your Health * To prevent worsening of your condition and complications * To maintain your health at the optimal level Directions to Meet Your Goals Take your medications as prescribed Follow your dietary instruction Follow activity as directed Ensure plenty of rest for recovery Drink fluids for hydration Keep your appointments as scheduled Take your immunizations and boosters as scheduled If your symptoms worsen call your PCP, if no PCP go to Urgent Care Center or Emergency Room Smoking is Dangerous to Your Health. Avoid second hand smoke Call the 24-hour crisis hotline for domestic abuse at Nereyda Scott Aug 20, 2016 09:56
--- NOTE | 2016-08-20 10:18 | PD.OB.ANTE ---
Subjective Diagnosis: (1) Hypertension affecting in third trimester (2) Asthma affecting , antepartum (3) 30 weeks gestation of Diagnosis: Principal Objective Vital Signs Vital Signs Date Time Temp Pulse Resp B/P Pulse Ox O2 Delivery O2 Flow Rate FiO2 08/20/16 08:10 101 08/20/16 08:05 100 08/20/16 08:00 102 08/20/16 04:58 20 08/20/16 04:58 98.7 08/20/16 04:56 105 135/66 08/20/16 00:05 20 08/19/16 22:55 20 08/19/16 22:54 108 144/67 08/19/16 20:16 98.0 08/19/16 20:16 20 08/19/16 20:15 115 129/72 08/19/16 19:21 22 08/19/16 19:20 107 154/96 08/19/16 19:15 110 100 08/19/16 19:10 106 99 08/19/16 19:05 104 100 08/19/16 19:00 108 08/19/16 19:00 100 08/19/16 18:55 109 99 08/19/16 18:50 107 100 08/19/16 18:45 106 100 08/19/16 18:40 106 100 08/19/16 18:35 105 100 08/19/16 18:30 102 99 08/19/16 18:25 103 99 08/19/16 18:20 105 99 08/19/16 18:15 105 100 08/19/16 18:10 110 100 08/19/16 18:05 102 100 08/19/16 18:00 106 100 08/19/16 17:55 105 100 08/19/16 17:50 104 100 08/19/16 17:45 106 99 08/19/16 17:40 108 100 08/19/16 17:35 109 100 08/19/16 17:30 108 100 08/19/16 17:25 115 100 08/19/16 17:20 97 99 08/19/16 17:15 97 98 08/19/16 17:10 97 99 08/19/16 17:05 94 100 08/19/16 16:55 102 100 08/19/16 16:50 107 100 08/19/16 16:45 113 100 08/19/16 16:40 109 100 08/19/16 16:35 109 100 08/19/16 16:30 111 100 08/19/16 16:25 111 100 08/19/16 16:20 114 100 08/19/16 16:15 117 99 08/19/16 16:12 98.3 08/19/16 16:11 22 08/19/16 16:10 112 139/83 99 08/19/16 16:10 109 08/19/16 16:09 115 147/76 08/19/16 16:05 110 100 08/19/16 16:00 115 99 08/19/16 15:55 62 95 08/19/16 15:50 111 100 08/19/16 15:45 112 100 08/19/16 15:40 113 100 08/19/16 15:35 114 100 08/19/16 15:30 114 100 08/19/16 15:25 114 100 08/19/16 15:20 113 100 08/19/16 15:15 116 100 08/19/16 15:10 114 99 08/19/16 15:05 119 100 08/19/16 15:00 111 100 08/19/16 14:55 112 141/99 98 08/19/16 14:55 114 08/19/16 14:54 24 08/19/16 14:54 109 32 142/92 08/19/16 14:50 113 100 08/19/16 14:45 100 08/19/16 14:45 107 08/19/16 14:40 111 08/19/16 14:40 100 08/19/16 14:35 108 08/19/16 14:35 100 08/19/16 14:30 100 08/19/16 14:30 109 08/19/16 14:25 102 08/19/16 14:25 100 08/19/16 14:20 109 08/19/16 14:20 100 08/19/16 14:15 105 100 08/19/16 14:10 111 100 08/19/16 14:05 112 100 08/19/16 14:00 110 100 08/19/16 13:55 110 100 08/19/16 13:50 109 100 08/19/16 13:45 108 100 08/19/16 13:40 109 100 08/19/16 13:35 115 99 08/19/16 13:30 108 100 08/19/16 13:25 102 99 08/19/16 13:20 105 99 08/19/16 13:10 115 100 08/19/16 13:05 113 100 08/19/16 13:00 107 28 132/85 99 08/19/16 12:55 109 99 08/19/16 12:50 96 08/19/16 12:50 103 08/19/16 12:45 96 08/19/16 12:45 103 08/19/16 12:40 103 08/19/16 12:40 96 08/19/16 12:35 101 08/19/16 12:35 96 08/19/16 12:30 98 08/19/16 12:30 101 08/19/16 12:25 101 97 08/19/16 12:20 103 96 08/19/16 12:15 102 97 08/19/16 12:10 97 96 08/19/16 12:05 95 94 08/19/16 12:00 98 94 08/19/16 11:50 98 96 08/19/16 11:47 28 08/19/16 11:46 32 08/19/16 11:45 104 131/84 08/19/16 11:45 99 08/19/16 11:35 108 08/19/16 11:35 99 08/19/16 11:30 105 08/19/16 11:30 97 08/19/16 11:25 103 08/19/16 11:25 97 08/19/16 11:20 97 08/19/16 11:20 105 08/19/16 11:15 98 08/19/16 11:15 104 08/19/16 11:10 104 08/19/16 11:10 99 08/19/16 11:05 104 08/19/16 11:05 100 08/19/16 11:00 100 08/19/16 11:00 97.9 08/19/16 11:00 104 08/19/16 10:55 100 08/19/16 10:55 104 08/19/16 10:50 104 08/19/16 10:50 100 08/19/16 10:45 100 08/19/16 10:45 104 08/19/16 10:40 100 08/19/16 10:40 104 08/19/16 10:38 25 08/19/16 10:35 106 08/19/16 10:35 100 08/19/16 10:30 100 08/19/16 10:30 108 08/19/16 10:25 100 08/19/16 10:25 108 08/19/16 10:22 28 08/19/16 10:20 101 08/19/16 10:20 100 08/19/16 10:15 100 08/19/16 10:15 104 08/19/16 10:10 101 08/19/16 10:10 100 08/19/16 10:05 103 08/19/16 10:05 100 08/19/16 10:00 100 08/19/16 10:00 102 Lab & Micro Results Test 08/20/16 08/20/16 03:00 04:55 Urine Total Volume 24 Hours 2150 ML Urine Total Protein 24 Hour 305 MG/24HR Creatinine 0.44 MG/DL 0.44 MG/DL White Blood Count 14.0 TH/MM3 Red Blood Count 3.78 MIL/MM3 Hemoglobin 9.9 GM/DL Hematocrit 30.3 % Mean Corpuscular Volume 80.3 FL Mean Corpuscular Hemoglobin 26.3 PG Mean Corpuscular Hemoglobin 32.8 % Concent Red Cell Distribution Width 14.6 % Platelet Count 259 TH/MM3 Mean Platelet Volume 9.2 FL Neutrophils (%) (Auto) 65.8 % Lymphocytes (%) (Auto) 22.2 % Monocytes (%) (Auto) 11.0 % Eosinophils (%) (Auto) 0.9 % Basophils (%) (Auto) 0.1 % Neutrophils # (Auto) 9.2 TH/MM3 Lymphocytes # (Auto) 3.1 TH/MM3 Monocytes # (Auto) 1.5 TH/MM3 Eosinophils # (Auto) 0.1 TH/MM3 Basophils # (Auto) 0.0 TH/MM3 CBC Comment DIFF FINAL Differential Comment Sodium Level 138 MEQ/L Potassium Level 3.9 MEQ/L Chloride Level 105 MEQ/L Carbon Dioxide Level 21.9 MEQ/L Anion Gap 11 MEQ/L Blood Urea Nitrogen 8 MG/DL Estimat Glomerular Filtration 162 ML/MIN Rate Random Glucose 96 MG/DL Uric Acid 2.6 MG/DL Calcium Level 8.1 MG/DL Total Bilirubin 0.1 MG/DL Aspartate Amino Transf 5 U/L (AST/SGOT) Alanine Aminotransferase 13 U/L (ALT/SGPT) Alkaline Phosphatase 67 U/L Total Protein 6.1 GM/DL Albumin 2.4 GM/DL Thyroid Stimulating Hormone 2.050 uIU/ML 3rd Gen Physical Exam GENERAL: Well-nourished, well-developed patient. CARDIOVASCULAR: Regular rate and rhythm without murmurs, gallops, or rubs. RESPIRATORY: Breath sounds equal bilaterally. No accessory muscle use. ABDOMEN/GI: Abdomen soft, non-tender. Fundus: [-] Membrane INTACT Uterine Contractions:NONE, ABD SOFT NONTENDER FHT's: 140-150'S, + VARIABILITY EXTREMITIES: No cyanosis or edema, non-tender, without signs of DVT. Assessment and Plan Problem List: (1) Hypertension affecting in third trimester Status: Acute (2) Asthma affecting , antepartum Status: Acute (3) 30 weeks gestation of Status: Acute Assessment and Plan PT LOOKS BETTER AND FEELING BETTER LABS AND BP STABLE PT CONTINUES WITH A COUGH SHE STATES X 3 WEEKS, LUNGS CLEAR, WILL GIVE LORTAB TO HELP PT DC HOME TODAY ON BEDREST WITH INSTRUCTIONS WHEN TO RETURN, EXPLAINED S/S OF PRE-ECLAMPSIA AND TO RETURN [facility], HAS AN APPT ON TUESDAY ROUTINE Nereyda Scott Aug 20, 2016 10:18
--- NOTE | 2016-08-20 10:24 | HHI.DCPOC ---
Discharge Care Plan Diagnosis: (1) with 30 completed weeks gestation (2) Hypertension affecting in third trimester Additional Problems RETURN TO HOSPITAL FOR SIGNS AND SYMPTOMS OF PRE-ECLAMPSIA INCLUDING SEVERE HEADACHE, FACIAL AND HAND SWELLING, VISUAL CHANGES AND OR SEEING SPOTS, PAIN UNDER RIBS THAT IS NOT THE BABY MOVING, IN GENERAL NOT FEELING WELL Report Symptoms to Your Doctor -Temperate above 100.5 degrees -Redness, of incision or excessive or foul smelling drainage -Unusual pain or calf pain -Increased vaginal bleeding -Painful or difficulty urinating -Feelings of extreme sadness or anxiety after 2 weeks Goals to Promote Your Health * To prevent worsening of your condition and complications * To maintain your health at the optimal level Directions to Meet Your Goals Take your medications as prescribed Follow your dietary instruction Follow activity as directed Ensure plenty of rest for recovery Drink fluids for hydration Keep your appointments as scheduled Take your immunizations and boosters as scheduled If your symptoms worsen call your PCP, if no PCP go to Urgent Care Center or Emergency Room Smoking is Dangerous to Your Health. Avoid second hand smoke Call the 24-hour crisis hotline for domestic abuse at Nereyda Scott Aug 20, 2016 10:24
[2016-08-20 10:41] LABS: CREAT 24 TIMED 62.8 MG/DL
[2016-08-24] MEDS ORDERED: ASPI1TAB69 PO (16:36)
== END 2016-08-20 11:45 | disposition home or self-care (01) ==
LOC: HOBED 01:37 → H2EA 02:48
PROVIDERS: ADMIT Obstetrics & Gynecology; ATTEND Obstetrics & Gynecology
DX: O16.3 Unspecified maternal hypertension, third trimester (principal); I10 Essential (primary) hypertension; H53.8 Other visual disturbances; Z3A.30 30 weeks gestation of pregnancy; R51 Headache; J45.909 Unspecified asthma, uncomplicated; R60.0 Localized edema; R53.83 Other fatigue; R00.0 Tachycardia, unspecified; O99.013 Anemia complicating pregnancy, third trimester; O09.523 Supervision of elderly multigravida, third trimester
CPT/HCPCS: 36600; 71010; 80053; 81001; 82575; 82805; 83615; 84157; 84443; 84550; 85025; 86592; 86900; 86901; 94640; 94664; 99284; G0378; J7613

== ENCOUNTER 2016-08-25 15:43 | Observation (INO) | payer MEDICAID ==
[2016-08-25] VITALS (7 sets, daily range): BP systolic 128–150; BP diastolic 66–93; PULSE 99–107; RESP 22
[~2016-08-25 15:43] MED LIST changes: +ASPI1TAB69 PO; -AZIT250T3 PO; +CALNTAB; +HYDR-3533 PO; +LABE300T PO; +VENTAER INH; +ZOFR4TAB PO
[2016-08-25] MEDS ORDERED: ONDANSETRON HCL 4 MG/2 ML VIAL IV ONE (16:45)
--- NOTE | 2016-08-25 17:08 | PD ---
HPI Chief Complaint not feeling well Date Seen: Aug 25, 2016 Travel History International Travel<30 Days: No Contact w/Intl Traveler<30Days: No History of Present Illness HPI 36 yo @ 31w5d with RUTH 10-22-2016. care with Dr. Gustafson. Patient with CHTN on Labetalol this . Patient seen yesterday at the clinic, BPs 140s/90s. She is on Labetalol 400mg po BID. This morning she "just did not feel well" and this afternoon felt her heart racing and has some nausea/vomiting x 1. She has had intermittent HAs, no RUQ pain. No UC, LOF, VB. +FM. She was evaluated in the [facility] and admitted for observation and a 24 hour urine last week. Her labs were wnl and the 24 hour urine noted 300mg of protein. History Past Medical History Narrative Medical CHTN Obesity Asthma Tachycardia Obstetric History Obstetric History 1997 and 1998 Past Surgical History Surgical History: No Previous Surgery Social History Alcohol Use: No Tobacco Use: No Substance Abuse: No Allergies-Medications (Allergen,Severity, Reaction): Coded Allergies: No Known Allergies (Unverified , 08/19/16) Home Meds Active Scripts Hydrocodone-Acetaminophen (Lortab)5-325 Mg Tab1 Tab PO Q4H #15 TAB Ref 0 Prov:Elizabeth Gustafson MD 08/20/16 Labetalol 300 Mg Req016 Mg PO Q12HR PRN (hypertension) #60 TAB Ref 4 Prov:Elizabeth Gustafson MD 08/20/16 Reported Medications Aspirin 81 Mg Tabdr81 Mg PO DAILY 08/24/16 Albuterol 18 GM Inh (Ventolin Hfa 18 GM Inh)90 Mcg/Act Aer2 Puff INH Q4H PRN ( SHORTNESS OF BREATH) #1 INHALER Ref 0 08/19/16 Ondansetron (Zofran)4 Mg Tab4 Mg PO Q6HR PRN (NAUSEA OR VOMITING) Ref 0 08/19/16 Vitamin (Calna)1 Tab Tab 08/19/16 Discontinued Reported Medications Labetalol 300 Mg [id number] Mg PO BID Ref 0 08/19/16 Review of Systems General / Constitutional: No: Fever, Chills Eyes: Visual changes (spots - no change in past weeks), No: Blurred Vision HENT: Headaches (no change in past weeks), No: Lightheadedness Cardiovascular: Tachycardia, No: Chest Pain or Discomfort, Palpitations Respiratory: Cough, No: Short of Breath Gastrointestinal: Nausea (resolved), Vomiting (x1), Abdominal Pain (LLQ x 1), No: Loss of Appetite (good appetite at this time) Genitourinary: No: Urgency, Frequency, Dysuria, Discharge, Vaginal Bleeding Skin: No Rash, No Itching Neurologic: Dizziness, No: Weakness, Syncope, Focal Abnormalities Physical Exam Narrative GENERAL: Well-nourished, well-developed patient. SKIN: Warm and dry. HEAD: Normocephalic and atraumatic. EYES: No scleral icterus. No injection or drainage. ENT: No nasal drainage noted. Mucous membranes pink. Airway patent. NECK: trachea midline. No JVD. CARDIOVASCULAR: Regular rate and rhythm without murmurs, gallops, or rubs. RESPIRATORY: Breath sounds equal bilaterally. No accessory muscle use. ABDOMEN/GI: Abdomen soft, non-tender, no rebound, no guarding Gravid TOCO: No UC FHT's: Category: II Baseline: 150 Reactive: +accelerations intermittently Variability: moderate Decels: has occasional deceleration without contraction followed by change in baseline 160s-170s for 20min, then resolved. EXTREMITIES: No cyanosis or edema. BACK: Nontender without obvious deformity. No CVA tenderness. NEUROLOGICAL: Awake and alert. Motor and sensory grossly within normal limits. Normal speech. Data Data Vital Signs Reviewed: Yes Orders Vital Signs (Adult) .ON ADMISSION (08/25/16 16:34) ^ Labor Status (08/25/16 16:34) Urinalysis - C+S If Indicated (08/25/16 16:34) ^ Non Stress Test (08/25/16 16:34) Cbc No Diff, Includes Plts (08/25/16 16:34) Comprehensive Metabolic Panel (08/25/16 16:34) Uric Acid (08/25/16 16:34) Lactated Ringer's 1000 Ml Inj (Lr 1000 M (08/25/16 16:34) Ondansetron Inj (Zofran Inj) (08/25/16 16:45) Labs Laboratory Tests Test 08/25/16 08/25/16 16:45 17:30 White Blood Count 10.3 TH/MM3 (4.0-11.0) Red Blood Count 4.21 MIL/MM3 (4.00-5.30) Hemoglobin 10.9 GM/DL (11.6-15.3) Hematocrit 33.4 % (35.0-46.0) Mean Corpuscular Volume 79.5 FL (80.0-100.0) Mean Corpuscular Hemoglobin 25.9 PG (27.0-34.0) Mean Corpuscular Hemoglobin 32.6 % Concent (32.0-36.0) Red Cell Distribution Width 14.5 % (11.6-17.2) Platelet Count 261 TH/MM3 (150-450) Mean Platelet Volume 9.1 FL (7.0-11.0) Sodium Level 134 MEQ/L (136-145) Potassium Level 3.8 MEQ/L (3.5-5.1) Chloride Level 104 MEQ/L (98-107) Carbon Dioxide Level 21.0 MEQ/L (21.0-32.0) Anion Gap 9 MEQ/L (5-15) Blood Urea Nitrogen 8 MG/DL (7-18) Creatinine 0.39 MG/DL (0.50-1.00) Estimat Glomerular Filtration 186 ML/MIN Rate (>89) Random Glucose 75 MG/DL (74-106) Uric Acid 2.7 MG/DL (2.6-6.0) Calcium Level 8.7 MG/DL (8.5-10.1) Total Bilirubin 0.2 MG/DL (0.2-1.0) Aspartate Amino Transf 14 U/L (15-37) (AST/SGOT) Alanine Aminotransferase 19 U/L (10-53) (ALT/SGPT) Alkaline Phosphatase 75 U/L (45-117) Total Protein 6.7 GM/DL (6.4-8.2) Albumin 2.6 GM/DL (3.4-5.0) Urine Color YELLOW (YELLW/STRAW) Urine Turbidity HAZY (CLEAR) Urine pH 6.5 (5.0-8.5) Urine Specific [place] 1.027 (1.002-1.035) Urine Protein 100 mg/dL (NEG-TRACE) Urine Glucose (UA) NEG mg/dL (NEG) Urine Ketones NEG mg/dL (NEG) Urine Occult Blood NEG (NEG) Urine Nitrite NEG (NEG) Urine Bilirubin NEG (NEG) Urine Urobilinogen LESS THAN 2.0 MG/DL (LESS THAN 2.0) Urine Leukocyte Esterase NEG (NEG) Urine RBC 6 /hpf (0-3) Urine WBC 2 /hpf (0-5) Urine Squamous Epithelial 14 /hpf (0-5) Cells Urine Calcium Oxalate Crystals MANY /hpf (NONE) Urine Hyaline Casts 1 /lpf (RARE) Urine Mucus MANY /lpf (OCC) Microscopic Urinalysis Comment CULT NOT INDICATED Vital Signs Date Time Temp Pulse Resp B/P Pulse Ox O2 Delivery O2 Flow Rate FiO2 08/25/16 18:31 100 132/66 08/25/16 18:15 102 128/76 08/25/16 18:00 101 132/80 08/25/16 17:46 99 138/72 08/25/16 17:31 105 142/89 MDM Narrative Course / MDM 31 weeks CHTN on Labetalol JETT, visual changes have been for past few weeks, and persistent. Had nausea/ vomiting x 1 today otherwise normal diet. BPs are mostly WNL Occasional deceleration with tachycardia, resolved Patient has had serial US in the clinic, normal per patient 24 hour urine last week 300mg/d CBC and CMP, WNL Plan Observation overnight Continuous monitoring Serial BPs US with OB Diagnostics/placenta grade/growth in AM s/p B-Methasone one week ago Physician Communication D/w Dr. Sj Borja,Danita Gramajo MD Aug 25, 2016 17:08
[2016-08-25] MEDS: LACTATED RINGER'S 1000 ML INJ 1,000 ML IV SCH (17:32)
[2016-08-25 17:59] LABS: HEMATOCRIT 33.4 % (35.0-46.0); MEAN CELL VOLUME 79.5 FL (80.0-100.0); MEAN CORPUSCULAR HEMOGLOBIN 25.9 PG (27.0-34.0); MEAN CORPUSCULAR HGB CONC 32.6 % (32.0-36.0); PLATELET COUNT 261 TH/MM3 (150-450); RED BLOOD COUNT 4.21 MIL/MM3 (4.00-5.30); RED CELL DISTRIBUTION WIDTH 14.5 % (11.6-17.2); REVIEW FLAG FINAL; WHITE BLOOD COUNT 10.3 TH/MM3 (4.0-11.0)
[2016-08-25 18:11] LABS: BLOOD, URINE NEG (NEG); CALCIUM OXALATE CRYSTALS,URINE MANY /hpf; COMMENT (UR) CULT NOT INDICATED; CULTURE IF INDICATED CULT NOT INDICATED; GLUCOSE,URINE NEG (NEG); HYALINE CAST, URINE 1 /lpf (RARE); KETONE, URINE NEG (NEG); MUCUS URINE MANY /lpf (OCC); NITRITE,URINE NEG (NEG); PH, URINE 6.5 (5.0-8.5); SQUAMOUS EPITHELIAL CELL URINE 14 /hpf (0-5); URINE COLOR YELLOW (YELLW/STRAW)
[2016-08-25 18:32] LABS: ANION GAP 9 MEQ/L (5-15); AST (GOT) 14 U/L (15-37); BLOOD UREA NITROGEN 8 MG/DL (7-18); CHLORIDE 104 MEQ/L (98-107); GLOMERULAR FILTRATION RATE 186 ML/MIN (>89); POTASSIUM 3.8 MEQ/L (3.5-5.1); SODIUM (NA) 134 MEQ/L (136-145); URIC ACID 2.7 MG/DL (2.6-6.0)
[2016-08-25 18:35] LABS: ALKALINE PHOSPHATASE 75 U/L (45-117); ALT (GPT) 19 U/L (10-53); TOTAL BILIRUBIN ADULT 0.2 MG/DL (0.2-1.0)
[2016-08-25] MEDS ORDERED: SODIUM CHLORIDE 0.9% FLUSH 5 ML FLUSH IVF PRN (19:00)
[2016-08-25] MEDS ORDERED: ONDANSETRON HCL 4 MG/2 ML VIAL IV PRN (19:00)
[2016-08-25] MEDS ORDERED: ALUMINUM/MAGNESIUM/SIMETH 30 ML CUP PO PRN (19:00)
[2016-08-25] MEDS ORDERED: ACETAMINOPHEN 325 MG TAB PO PRN (19:00)
[2016-08-25] MEDS: SODIUM CHLORIDE 0.9% FLUSH 5 ML FLUSH IVF SCH (21:00)
[2016-08-25] MEDS ORDERED: ZOLPIDEM TARTRATE 5 MG TAB PO PRN (21:00)
[2016-08-25] MEDS: LABETALOL HCL 300 MG TAB PO SCH ×2 (21:00→21:31)
[2016-08-25] MEDS: DOCUSATE SODIUM 100 MG CAP PO SCH (21:49)
[2016-08-25] MEDS ORDERED: RESP: ALBUTEROL 1.25 MG/3 ML NEB (PRN) NEB (22:15)
[2016-08-26] MEDS: LACTATED RINGER'S 1000 ML INJ 1,000 ML IV SCH ×2 (00:34→08:34)
[2016-08-26] MEDS: DOCUSATE SODIUM 100 MG CAP PO SCH (09:00)
[2016-08-26] MEDS: LABETALOL HCL 300 MG TAB PO SCH (09:00)
[2016-08-26] MEDS: SODIUM CHLORIDE 0.9% FLUSH 5 ML FLUSH IVF SCH (09:00)
--- NOTE | 2016-08-26 09:52 | HHI.DCPOC ---
Discharge Care Plan Diagnosis: (1) Hypertension affecting in third trimester Report Symptoms to Your Doctor -Temperate above 100.5 degrees -Redness, of incision or excessive or foul smelling drainage -Unusual pain or calf pain -Increased vaginal bleeding -Painful or difficulty urinating -Feelings of extreme sadness or anxiety after 2 weeks Goals to Promote Your Health * To prevent worsening of your condition and complications * To maintain your health at the optimal level Directions to Meet Your Goals Take your medications as prescribed Follow your dietary instruction Follow activity as directed Ensure plenty of rest for recovery Drink fluids for hydration Keep your appointments as scheduled Take your immunizations and boosters as scheduled If your symptoms worsen call your PCP, if no PCP go to Urgent Care Center or Emergency Room Smoking is Dangerous to Your Health. Avoid second hand smoke Call the 24-hour crisis hotline for domestic abuse at Nereyda Scott Aug 26, 2016 09:52
== END 2016-08-26 18:01 | disposition home or self-care (01) ==
LOC: HOBED 15:43 → H2EA 19:11
PROVIDERS: ADMIT Obstetrics & Gynecology; ATTEND Obstetrics & Gynecology
DX: O16.3 Unspecified maternal hypertension, third trimester (principal); J45.909 Unspecified asthma, uncomplicated; Z3A.31 31 weeks gestation of pregnancy
CPT/HCPCS: 76816; 76819; 76820; 80053; 81001; 84550; 85027; 96374; 99284; G0378; J2405; J7120

== ENCOUNTER 2016-09-14 11:41 | Emergency (ER) | payer MEDICAID ==
[2016-09-14] VITALS (26 sets, daily range): BP systolic 101–164; BP diastolic 37–95; PULSE 106–126; RESP 19–20; TEMP 98.1
[~2016-09-14 11:41] MED LIST changes: -HYDR-3533 PO
[2016-09-14 12:42] LABS: HEMATOCRIT 35.4 % (35.0-46.0); MEAN CELL VOLUME 79.1 FL (80.0-100.0); MEAN CORPUSCULAR HEMOGLOBIN 26.4 PG (27.0-34.0); MEAN CORPUSCULAR HGB CONC 33.4 % (32.0-36.0); PLATELET COUNT 266 TH/MM3 (150-450); RED BLOOD COUNT 4.48 MIL/MM3 (4.00-5.30); RED CELL DISTRIBUTION WIDTH 15.1 % (11.6-17.2); REVIEW FLAG FINAL; WHITE BLOOD COUNT 10.1 TH/MM3 (4.0-11.0)
[2016-09-14 12:53] LABS: BACTERIA, URINE OCC /hpf; BLOOD, URINE NEG (NEG); COMMENT (UR) CULTURE INDICATED; CULTURE IF INDICATED CULTURE INDICATED; GLUCOSE,URINE NEG (NEG); KETONE, URINE NEG (NEG); MUCUS URINE MANY /lpf (OCC); NITRITE,URINE NEG (NEG); PH, URINE 6.5 (5.0-8.5); SQUAMOUS EPITHELIAL CELL URINE 49 /hpf (0-5); URINE COLOR YELLOW (YELLW/STRAW)
[2016-09-14 12:59] LABS: AMPHETAMINE, URINE NEG (NEG); BARBITURATES, URINE NEG (NEG); COCAINE, URINE NEG (NEG)
--- NOTE | 2016-09-14 13:02 | PD ---
HPI Chief Complaint sent from office for r/out preeclampsia Date Seen: Sep 14, 2016 Time Seen: 12:45 Travel History International Travel<30 Days: No Contact w/Intl Traveler<30Days: No Known Affected Area: No History of Present Illness HPI Pt is a 36 y/o with IUP at 34.4 wks sent from office for preeclampsia workup. Pt reports BP in office 160s/100. reports + headache since yesterday, + visual changes/scotomata today, + swelling of hands/face. pt denies ruq pain. reports some lower ab cramping, ? contractions. pt denies lof, vb. +FM Para: 2 : 5 Miscarriage: 2 History Past Medical History Narrative Medical chronic hypertension, on unknown med prior to on labetalol during obesity Obstetric History Obstetric History SAB x 2 1997 at 35 wks, induced for preeclampsia 1998 full term , no comp Past Surgical History Surgical History: No Previous Surgery Family History Family History: Negative Social History Alcohol Use: No Tobacco Use: No Substance Abuse: No Allergies-Medications (Allergen,Severity, Reaction): Coded Allergies: No Known Allergies (Unverified , 08/19/16) Home Meds Active Scripts Labetalol 300 Mg [id number] Mg PO Q12HR PRN (hypertension) #60 TAB Ref 4 Prov:Elizabeth Gustafson MD 08/20/16 Reported Medications Aspirin 81 Mg Tabdr81 Mg PO DAILY 08/24/16 Albuterol 18 GM Inh (Ventolin Hfa 18 GM Inh)90 Mcg/Act Aer2 Puff INH Q4H PRN ( SHORTNESS OF BREATH) #1 INHALER Ref 0 08/19/16 Ondansetron (Zofran)4 Mg Tab4 Mg PO Q6HR PRN (NAUSEA OR VOMITING) Ref 0 08/19/16 Vitamin (Calna)1 Tab Tab 08/19/16 Review of Systems General / Constitutional: Weight Gain, Weight Loss, No: Chills, Other Eyes: Blurred Vision, Visual changes HENT: Headaches Gastrointestinal: Nausea, Abdominal Pain Genitourinary: Pelvic Pain Musculoskeletal: Edema Skin: Rash Neurologic: Headache Physical Exam Vital Signs Date Time Temp Pulse Resp B/P Pulse Ox O2 Delivery O2 Flow Rate FiO2 09/14/16 12:31 110 119/81 09/14/16 12:30 110 20 09/14/16 12:29 117 101/37 09/14/16 12:26 98.1 09/14/16 12:25 111 09/14/16 12:15 117 155/87 09/14/16 12:08 122 164/94 Narrative GENERAL: Well-nourished, well-developed patient. SKIN: Warm and dry. HEAD: Normocephalic and atraumatic. EYES: No scleral icterus. No injection or drainage. ENT: No nasal drainage noted. Mucous membranes pink. Airway patent. NECK: Supple, trachea midline. No JVD. CARDIOVASCULAR: Regular rate and rhythm without murmurs, gallops, or rubs. RESPIRATORY: Breath sounds equal bilaterally. No accessory muscle use. ABDOMEN/GI: Abdomen soft, non-tender, bowel sounds present, no rebound, no guarding Gravid GENITOURINARY: Membranes: [intact] Uterine Contractions: none FHT's: Category: 1 Baseline: 150 Reactive: yes Variability: mod Decels: no EXTREMITIES: No cyanosis or edema. BACK: Nontender without obvious deformity. No CVA tenderness. NEUROLOGICAL: Awake and alert. Motor and sensory grossly within normal limits. Five out of 5 muscle strength in all muscle groups. Normal speech. 2+ patellar DTRs Data Data Vital Signs Reviewed: Yes Orders Vital Signs (Adult) .ON ADMISSION (09/14/16 12:09) ^ Labor Status (09/14/16 12:09) Urinalysis - C+S If Indicated (09/14/16 12:09) Cbc No Diff, Includes Plts (09/14/16 12:09) Comprehensive Metabolic Panel (09/14/16 12:09) Uric Acid (09/14/16 12:09) Ob/Psych Drug Screen, Urine (09/14/16 12:09) Labs Laboratory Tests Test 09/14/16 12:20 White Blood Count 10.1 Red Blood Count 4.48 Hemoglobin 11.8 Hematocrit 35.4 Mean Corpuscular Volume 79.1 Mean Corpuscular Hemoglobin 26.4 Mean Corpuscular Hemoglobin 33.4 Concent Red Cell Distribution Width 15.1 Platelet Count 266 Mean Platelet Volume 9.5 MDM Medical Record Reviewed: Yes Narrative Course / MDM 36 y/o with IUP at 34.4 wks with elevated blood pressures and s/sx preeclampsia --h/o chtn, morbid obesity, AMA, and h/o preeclampsia with first --serial BPs and PIH labs ordered Report given to Edith Mcpherson MD Sep 14, 2016 13:02
[2016-09-14 13:08] LABS: ANION GAP 13 MEQ/L (5-15); AST (GOT) 13 U/L (15-37); BICARBONATE 20.1 MEQ/L (21.0-32.0); BLOOD UREA NITROGEN 6 MG/DL (7-18); CHLORIDE 105 MEQ/L (98-107); GLOMERULAR FILTRATION RATE 176 ML/MIN (>89); SODIUM (NA) 138 MEQ/L (136-145)
[2016-09-14 13:12] LABS: ALKALINE PHOSPHATASE 82 U/L (45-117); ALT (GPT) 18 U/L (10-53); TOTAL BILIRUBIN ADULT 0.2 MG/DL (0.2-1.0); URIC ACID 2.8 MG/DL (2.6-6.0)
[2016-09-17 12:56] LABS: PHENCYCLIDINE URINE NEG (NEG)
[2016-09-17 12:57] LABS: HEROIN (6-ACETYLMORPHINE) UR NEG (NEG); OBMETHADONE UR NEG (NEG)
[2016-09-17 12:58] LABS: BATH SALTS (MDPV) UR NEG (NEG); ECSTASY (MDMA) UR NEG (NEG); K2 SPICE UR NEG (NEG); OXYCODONE (PERCODAN) NEG (NEG)
== END 2016-09-14 14:36 | disposition home or self-care (01) ==
LOC: HOBED 11:41
DX: O09.523 Supervision of elderly multigravida, third trimester (principal); O10.913 Unspecified pre-existing hypertension complicating pregnancy, third trimester; R82.90 Unspecified abnormal findings in urine; R51 Headache; Z3A.34 34 weeks gestation of pregnancy
CPT/HCPCS: 36415; 59025; 80053; 80307; 81001; 84550; 85027; 87086; 99284; G0481

== ENCOUNTER 2016-09-19 19:32 | Emergency (ER) | payer MEDICAID ==
--- NOTE | 2016-09-19 20:03 | PD ---
HPI Chief Complaint JETT and blurry vision. Date Seen: Sep 19, 2016 Travel History International Travel<30 Days: No Contact w/Intl Traveler<30Days: No Known Affected Area: No History of Present Illness HPI at 35w 2d presents with c/o JETT, blurry vision. Reports symptoms beginning earlier today. Denies taking Tylenol today. Denies RUQ pain. Patient with hx of CHTN, on Labetalol. Denies LOF/VB. Reports some lower abdominal cramping. Good FM. Para: 3 : 5 History Past Medical History Medical History: Denies Significant Hx Past Surgical History Surgical History: No Previous Surgery Family History Family History: Negative Social History Alcohol Use: No Tobacco Use: No Substance Abuse: No Allergies-Medications (Allergen,Severity, Reaction): Coded Allergies: No Known Allergies (Unverified , 08/19/16) Home Meds Active Scripts Labetalol 300 Mg Grv332 Mg PO Q12HR PRN (hypertension) #60 TAB Ref 4 Prov:Elizabeth Gustafson MD 08/20/16 Reported Medications Aspirin 81 Mg Tabdr81 Mg PO DAILY 08/24/16 Albuterol 18 GM Inh (Ventolin Hfa 18 GM Inh)90 Mcg/Act Aer2 Puff INH Q4H PRN ( SHORTNESS OF BREATH) #1 INHALER Ref 0 08/19/16 Ondansetron (Zofran)4 Mg Tab4 Mg PO Q6HR PRN (NAUSEA OR VOMITING) Ref 0 08/19/16 Vitamin (Calna)1 Tab Tab 08/19/16 Physical Exam VSS BP 139/62, 151/97, 137/81, 131/84 Narrative GENERAL: Well-nourished, well-developed patient. SKIN: Warm and dry. HEAD: Normocephalic and atraumatic. EYES: No scleral icterus. No injection or drainage. ENT: No nasal drainage noted. Mucous membranes pink. Airway patent. NECK: Supple, trachea midline. No JVD. CARDIOVASCULAR: Regular rate and rhythm without murmurs, gallops, or rubs. RESPIRATORY: Breath sounds equal bilaterally. No accessory muscle use. BREASTS: Bilateral exam showed no masses , no retractions, no nipple discharge. ABDOMEN/GI: Abdomen soft, non-tender, bowel sounds present, no rebound, no guarding Gravid to [-] weeks size Fundal Height: [-] GENITOURINARY: External Genitalia: intact and normal in appearance BUS glands: [-] Cervix: [-] Dilatation: [0] Effacement: [20] Station: [3] Presentation: [-] Membranes: [intact or ruptured] Uterine Contractions: [none] FHT's: Category: [1] Baseline: [140s] Reactive: [reactive] Variability: [moderate] Decels: [none] EXTREMITIES: No cyanosis or edema. BACK: Nontender without obvious deformity. No CVA tenderness. NEUROLOGICAL: Awake and alert. Motor and sensory grossly within normal limits. Five out of 5 muscle strength in all muscle groups. Normal speech. Data Data Orders Urinalysis - C+S If Indicated (09/19/16 19:58) Cbc No Diff, Includes Plts (09/19/16 19:58) Comprehensive Metabolic Panel (09/19/16 19:58) Ldh Serum (09/19/16 19:58) Uric Acid (09/19/16 19:58) MDM Interpretation(s) at 35w 2d with CHTN on Labetalol. Narrative Course / MDM Pre Eclampsia labs WNL. Plan Will obtain serial BPs and Pre Eclampsia labs. Will administer Tylenol 1gm. Pre Eclampsia precautions given. Keep f/u in 2 days. All questions answered. Reports JTET improved. Diagnosis Diagnosis: Primary Impression: 35 weeks gestation of Additional Impressions: Chronic hypertension complicating or reason for care during Obesity complicating in third trimester Disposition: 01 DISCHARGE HOME Karis Rogers MD Sep 19, 2016 20:03
[2016-09-19] MEDS ORDERED: ACETAMINOPHEN 500 MG CPLT PO ONE (20:30)
[2016-09-19 21:18] LABS: HEMATOCRIT 34.1 % (35.0-46.0); MEAN CELL VOLUME 78.4 FL (80.0-100.0); MEAN CORPUSCULAR HEMOGLOBIN 25.9 PG (27.0-34.0); MEAN CORPUSCULAR HGB CONC 33.1 % (32.0-36.0); PLATELET COUNT 247 TH/MM3 (150-450); RED BLOOD COUNT 4.34 MIL/MM3 (4.00-5.30); REVIEW FLAG FINAL; WHITE BLOOD COUNT 9.2 TH/MM3 (4.0-11.0)
[2016-09-19 21:26] LABS: BACTERIA, URINE RARE /hpf; BLOOD, URINE NEG (NEG); COMMENT (UR) CULT NOT INDICATED; CULTURE IF INDICATED CULT NOT INDICATED; GLUCOSE,URINE NEG (NEG); KETONE, URINE TRACE mg/dL (NEG); MUCUS URINE FEW /lpf (OCC); NITRITE,URINE NEG (NEG); SQUAMOUS EPITHELIAL CELL URINE 4 /hpf (0-5); URINE COLOR YELLOW (YELLW/STRAW)
[2016-09-19 21:42] LABS: ANION GAP 10 MEQ/L (5-15); AST (GOT) 8 U/L (15-37); BICARBONATE 19.9 MEQ/L (21.0-32.0); BLOOD UREA NITROGEN 9 MG/DL (7-18); CHLORIDE 106 MEQ/L (98-107); GLOMERULAR FILTRATION RATE 128 ML/MIN (>89); POTASSIUM 3.6 MEQ/L (3.5-5.1); SODIUM (NA) 136 MEQ/L (136-145); URIC ACID 2.9 MG/DL (2.6-6.0)
[2016-09-19 21:45] LABS: ALKALINE PHOSPHATASE 95 U/L (45-117); ALT (GPT) 16 U/L (10-53); LDH SERUM 103 U/L (84-246); TOTAL BILIRUBIN ADULT 0.2 MG/DL (0.2-1.0)
== END 2016-09-19 22:13 | disposition home or self-care (01) ==
LOC: HOBED 19:32
DX: O16.3 Unspecified maternal hypertension, third trimester (principal); O99.213 Obesity complicating pregnancy, third trimester; Z3A.35 35 weeks gestation of pregnancy
CPT/HCPCS: 36415; 59025; 80053; 81001; 83615; 84550; 85027

== ENCOUNTER → 2016-09-21 | Emergency (ER) | payer MEDICAID ==
[2016-09-21] VITALS (8 sets, daily range): BP systolic 134–155; BP diastolic 73–103; PULSE 89–109; RESP 18–20; TEMP 98.4
[~2016-09-21] MED LIST changes: +IBUP-232 PO; +OXYC1TAB63 PO; +oxyCODONE/ACETAMINOPHEN 5 MG/325 MG TAB PO ONE
--- NOTE | 2016-09-21 13:21 | PD ---
HPI Travel History International Travel<30 Days: No Contact w/Intl Traveler<30Days: No Known Affected Area: No History of Present Illness HPI This patient is a 36-year-old 5 para 20-3 EDC is October 22, 2016 presently at 35 weeks and 4 days patient was seen in the office today by Dr. Gonzales were her blood pressure was found to be elevated she had complaints of headaches and seeing spots nausea no vomiting no ruptured membranes no vaginal bleeding the baby is active denies any contractions does have some lower abdominal pressure like pain and pain at the fundal area Patient has been seen on labor and delivery for headaches in the past History of chronic hypertension on labetalol 500 mg by mouth twice a day she took her dose this morning History Past Medical History Narrative Medical No known drug allergies Chronic hypertension on labetalol as previously mentioned Obstetric History Obstetric History Vaginal delivery 2 spontaneous AB 2 Past Surgical History Surgical History: No Previous Surgery Family History Family History: Negative Social History Alcohol Use: No Tobacco Use: No Substance Abuse: No Allergies-Medications (Allergen,Severity, Reaction): Coded Allergies: No Known Allergies (Unverified , 08/19/16) Home Meds Active Scripts Labetalol 300 Mg Hpw501 Mg PO Q12HR PRN (hypertension) #60 TAB Ref 4 Prov:Elizabeth Gonzales MD 08/20/16 Reported Medications Aspirin 81 Mg Tabdr81 Mg PO DAILY 08/24/16 Albuterol 18 GM Inh (Ventolin Hfa 18 GM Inh)90 Mcg/Act Aer2 Puff INH Q4H PRN ( SHORTNESS OF BREATH) #1 INHALER Ref 0 08/19/16 Ondansetron (Zofran)4 Mg Tab4 Mg PO Q6HR PRN (NAUSEA OR VOMITING) Ref 0 08/19/16 Vitamin (Calna)1 Tab Tab 08/19/16 Review of Systems General / Constitutional: No: Fever, Weight Gain, Weight Loss, Chills, Other Eyes: Other (spots in front of her eyes) HENT: Headaches Cardiovascular: No: Irregular Rhythm, Chest Pain or Discomfort, Palpitations, Tachycardia, Syncope, Varicosities, Edema, Cyanosis, Other Respiratory: No: Cough, Short of Breath, Wheezing, Other Gastrointestinal: Nausea, Abdominal Pain Genitourinary: No: Urgency, Frequency, Dysuria, Nocturia, Hematuria, Decreased Urinary Output, Oliguria, Hesitancy, Dribbling, Incontinence, Pelvic Pain, Dyspareunia, Discharge, Menorrhagia, Vaginal Bleeding, Other Musculoskeletal: Pain (low back pain) Neurologic: No: Weakness, Dizziness, Syncope, Focal Abnormalities, Coordination Problem, Headache, Slurred Speech, Seizures, Other Physical Exam Vital Signs Date Time Temp Pulse Resp B/P Pulse Ox O2 Delivery O2 Flow Rate FiO2 09/21/16 13:04 98.4 20 Narrative GENERAL: Well-nourished, well-developed patient. Alert oriented 3 and cooperative in no acute distress SKIN: Warm and dry. HEAD: Normocephalic and atraumatic. EYES: No scleral icterus. No injection or drainage. ENT: No nasal drainage noted. Mucous membranes pink. Airway patent. NECK: Supple, trachea midline. No JVD. CARDIOVASCULAR: Regular rate and rhythm without murmurs, gallops, or rubs. RESPIRATORY: Breath sounds equal bilaterally. No accessory muscle use. ABDOMEN/GI: No epigastric or right upper quadrant tenderness the abdomen is obese nontender Gravid to [-] weeks size obese and consistent with 35 weeks Fundal Height: [-] GENITOURINARY: Pelvic exam is deferre Membranes: [intact Uterine Contractions: [-] Irregular FHT's: Category: [-] 1 Baseline: [-] 150 Reactive: [-] + Variability: [-] Moderate Decels: [-] 0 EXTREMITIES: No cyanosis or edema. 2+ NEUROLOGICAL: Awake and alert. Motor and sensory grossly within normal limits. Five out of 5 muscle strength in all muscle groups. Normal speech. Data Data Vital Signs Reviewed: Yes (initial blood pressure 148/100 repeat 146/101 temperatures 98 4 pulse is 109) Orders Vital Signs (Adult) .ON ADMISSION (09/21/16 12:50) ^ Labor Status (09/21/16 12:50) Urinalysis - C+S If Indicated (09/21/16 12:50) ^ Hydration (09/21/16 12:50) Cbc No Diff, Includes Plts (09/21/16 12:50) Comprehensive Metabolic Panel (09/21/16 12:50) Uric Acid (09/21/16 12:50) Protein Creat Ratio, Random Ur (09/21/16 12:50) MDM Medical Record Reviewed: Yes (previous note reviewed) Interpretation(s) 36-year-old at 35 weeks 4 days History of chronic hypertension on labetalol 500 mg by mouth twice a day Rule out superimposed preeclampsia Headache Advanced maternal age Obesity Narrative Course / MDM Patient has been monitored over the past couple of hours her headache has improved her abdominal pain is resolved per the patient Blood pressures have ranged between 145-148/100-102 On her left side her blood pressures 134/73 Laboratory data platelets 255,000 SGOT is 12 SGPT 17 1+ protein in the urine Protein uric creatinine ratio was 0.[address] Gonzales baby still category 1 tracing right 3 yet category 1 he gave him all of this information states to send the patient home on bed rest left side She is to continue her labetalol 500 mg twice a day Follow-up with him on morning for blood pressure check Plan External monitoring Blood pressure every 15 minutes CBC CMP uric acid urinalysis protein creatinine ratio Dr. Gonzales is present on labor delivering an is in seeing the patient Once patient is stable and labs are normal discharge patient home on bedrest follow-up in the office Physician Communication Dr. Gonzales is on L and D and caring for the patient Diagnosis Diagnosis: Primary Impression: 35 weeks gestation of Additional Impressions: Obesity complicating in third trimester Chronic hypertension during Disposition: DISCHARGE HOME Condition: Stable Jessie Jeff MD Sep 21, 2016 13:21
[2016-09-21 13:50] LABS: HEMATOCRIT 34.5 % (35.0-46.0); MEAN CELL VOLUME 78.1 FL (80.0-100.0); MEAN CORPUSCULAR HEMOGLOBIN 25.7 PG (27.0-34.0); MEAN CORPUSCULAR HGB CONC 32.9 % (32.0-36.0); PLATELET COUNT 255 TH/MM3 (150-450); RED BLOOD COUNT 4.41 MIL/MM3 (4.00-5.30); RED CELL DISTRIBUTION WIDTH 15.1 % (11.6-17.2); REVIEW FLAG FINAL; WHITE BLOOD COUNT 9.8 TH/MM3 (4.0-11.0)
[2016-09-21 13:56] LABS: BACTERIA, URINE FEW /hpf; BLOOD, URINE NEG (NEG); GLUCOSE,URINE NEG (NEG); KETONE, URINE NEG (NEG); MUCUS URINE FEW /lpf (OCC); NITRITE,URINE NEG (NEG); PH, URINE 6.5 (5.0-8.5); SQUAMOUS EPITHELIAL CELL URINE 25 /hpf (0-5); URINE COLOR YELLOW (YELLW/STRAW)
[2016-09-21 13:58] LABS: COMMENT (UR) CULT NOT INDICATED; CULTURE IF INDICATED CULT NOT INDICATED
[2016-09-21 14:03] LABS: ANION GAP 10 MEQ/L (5-15); AST (GOT) 12 U/L (15-37); BICARBONATE 20.5 MEQ/L (21.0-32.0); BLOOD UREA NITROGEN 8 MG/DL (7-18); CHLORIDE 107 MEQ/L (98-107); GLOMERULAR FILTRATION RATE 150 ML/MIN (>89); SODIUM (NA) 137 MEQ/L (136-145); URIC ACID 3.3 MG/DL (2.6-6.0)
[2016-09-21 14:07] LABS: ALKALINE PHOSPHATASE 95 U/L (45-117); ALT (GPT) 17 U/L (10-53); TOTAL BILIRUBIN ADULT 0.2 MG/DL (0.2-1.0)
[2016-09-21 17:15] LABS: HEMOGLOBIN A1b 1.9 %; HEMOGLOBIN Ao 85.4 %; HEMOGLOBIN LA1C 1.9 %; HEMOGLOBIN P3 3.6 %
== END | disposition home or self-care (01) ==
LOC: HOBED 12:43
DX: O10.913 Unspecified pre-existing hypertension complicating pregnancy, third trimester (principal); O99.213 Obesity complicating pregnancy, third trimester; Z3A.35 35 weeks gestation of pregnancy
CPT/HCPCS: 36415; 59025; 80053; 81001; 82570; 83036; 84156; 84550; 85027

== ENCOUNTER 2016-09-23 15:47 | Inpatient (IN) | payer MEDICAID ==
[2016-09-23] VITALS (40 sets, daily range): BP systolic 121–188; BP diastolic 66–123; PULSE 100–128; RESP 18; TEMP 97.9
[~2016-09-23] VITALS: Ht 157.5 cm; Wt 116.1 kg
[~2016-09-23 15:47] MED LIST changes: -IBUP-232 PO; -OXYC1TAB63 PO; -oxyCODONE/ACETAMINOPHEN 5 MG/325 MG TAB PO ONE
[2016-09-23] MEDS ORDERED: NIFEdipine 10 MG CAP ONE (16:41)
[2016-09-23] MEDS ORDERED: NIFEdipine 10 MG CAP PO ONE (17:00)
[2016-09-23] MEDS ORDERED: ONDANSETRON HCL 4 MG/2 ML VIAL IV PRN (17:00)
[2016-09-23] MEDS ORDERED: ALUMINUM/MAGNESIUM/SIMETH 30 ML CUP PO PRN (17:00)
[2016-09-23] MEDS ORDERED: ZOLPIDEM TARTRATE 5 MG TAB PO PRN (17:00)
[2016-09-23] MEDS ORDERED: ACETAMINOPHEN 325 MG TAB PO PRN (17:00)
[2016-09-23] MEDS ORDERED: SODIUM CHLORIDE 0.9% FLUSH 5 ML FLUSH IVF PRN (17:00)
[2016-09-23] MEDS ORDERED: ALBUTEROL SULFATE 90 MCG/ACT HFA 8 GM INHALER INH PRN (17:00)
[2016-09-23] MEDS ORDERED: LACTATED RINGER'S 1000 ML INJ 1,000 ML IV SCH ×2 (17:00→18:00)
--- NOTE | 2016-09-23 17:10 | HHI.HP ---
History & Physical H&P HPI HPI Travel History International Travel<30 Days: No Contact w/Intl Traveler<30Days: No Known Affected Area: No History of Present Illness HPI This patient is a 36-year-old 5 para 203 2 EDC is October 22, 2016 she's presently at 35 weeks and 5 days patient was seen in the office again by Dr. cueva of her blood pressure was found to be elevated she had complaints of a headache and feeling dizzy she was sent over to labor and delivery for evaluation no vomiting no rupture of membranes no vaginal bleeding the baby is active no major contractions has low back pain and pressure in her lower abdomen patient has been seen on labor and delivery for the past 3 days she has a history of chronic hypertension she is on labetalol 500 mg by mouth twice a day she states she did take her dose this morning Upon arrival to labor and delivery she was given Procardia 10 mg by mouth History (Limited) History Past Medical History Narrative Medical No known drug allergies history of chronic hypertension as previously mentioned on labetalol Obstetric History Obstetric History Vaginal delivery 2 spontaneous AB 2 Past Surgical History Narrative Surgical No previous surgery Family History Family History: Negative Social History Alcohol Use: No Tobacco Use: No Substance Abuse: No Allergies-Medications Allergies-Medications (Allergen,Severity, Reaction): Coded Allergies: No Known Allergies (Unverified , 08/19/16) Home Meds Active Scripts Labetalol 300 Mg Eot051 Mg PO Q12HR PRN (hypertension) #60 TAB Ref 4 Prov:Elizabeth Gustafson MD 08/20/16 Reported Medications Aspirin 81 Mg Tabdr81 Mg PO DAILY 08/24/16 Albuterol 18 GM Inh (Ventolin Hfa 18 GM Inh)90 Mcg/Act Aer2 Puff INH Q4H PRN ( SHORTNESS OF BREATH) #1 INHALER Ref 0 08/19/16 Ondansetron (Zofran)4 Mg Tab4 Mg PO Q6HR PRN (NAUSEA OR VOMITING) Ref 0 08/19/16 Vitamin (Calna)1 Tab Tab 08/19/16 ROS Review of Systems General / Constitutional: No: Fever, Weight Gain, Weight Loss, Chills, Other HENT: Headaches Cardiovascular: No: Irregular Rhythm, Chest Pain or Discomfort, Palpitations, Tachycardia, Syncope, Varicosities, Edema, Cyanosis, Other Respiratory: No: Cough, Short of Breath, Wheezing, Other Gastrointestinal: Nausea Genitourinary: No: Urgency, Frequency, Dysuria, Nocturia, Hematuria, Decreased Urinary Output, Oliguria, Hesitancy, Dribbling, Incontinence, Pelvic Pain, Dyspareunia, Discharge, Menorrhagia, Vaginal Bleeding, Other Musculoskeletal: Pain (back pain) Skin: No Rash, No Itching, No Dryness, No Lumps, No Change in Pigmentation, No Change in Nails, No Alopecia, No Lesions, No Breast Lumps, No Breast Tenderness , No Breast Swelling, No Other Neurologic: Dizziness Psychiatric: No: Anxiety, Depression, Suicidal Ideations, Disorder of Thought, Mood Disorder, Substance Abuse, Homicidal Ideation, Other Physical Exam Physical Exam Narrative GENERAL: Well-nourished, well-developed patient. She is alert oriented 3 and cooperative appears to be uncomfortable but in no acute distress HEAD: Normocephalic and atraumatic. EYES: No scleral icterus. No injection or drainage. ENT: No nasal drainage noted. Mucous membranes pink. Airway patent. NECK: Supple, trachea midline. No JVD. CARDIOVASCULAR: Regular rate and rhythm without murmurs, gallops, or rubs. RESPIRATORY: Breath sounds equal bilaterally. No accessory muscle use. ABDOMEN/GI: Morbidly obese gravid consistent with 35 weeks Gravid to [-] weeks size 35 Fundal Height: [-] GENITOURINARY: External Genitalia: intact and normal in appearance BUS glands: [-] Cervix: [-] Posterior soft Dilatation: [-] Fingertip Effacement: [-] 0 Station: [-] Ballotable Presentation: [-] Vertex Membranes: [intact or ruptured] Uterine Contractions: [-] FHT's: Category: [-] 1 Baseline: [-] 150 Reactive: [-] + Variability: [-] Moderate xuao-gq-ceke variability Decels: [-] 0 EXTREMITIES: No cyanosis or edema. 1+ reflexes NEUROLOGICAL: Awake and alert. Motor and sensory grossly within normal limits. Five out of 5 muscle strength in all muscle groups. Normal speech. Data Data Data Vital Signs Reviewed: Yes (pressures are 160s over 100s) Orders Ob (2e) Additional Admit Info (09/23/16 16:38) Nifedipine (Procardia) (09/23/16 16:41) Place In Observation (09/23/16 ) Diet Liquid (09/23/16 Dinner) Vital Signs (Adult) [id number] AWAKE (09/23/16 16:47) ^ Heart (09/23/16 16:47) Activity Bed Rest With Brp (09/23/16 16:47) Complete Blood Count With Diff (09/23/16 16:47) Urinalysis - C+S If Indicated (09/23/16 16:47) Lactated Ringer's 1000 Ml Inj (Lr 1000 M (09/23/16 16:47) Acetaminophen (Tylenol) (09/23/16 17:00) Al-Mag Hy-Si 40-40-4 Mg/Ml Liq (Mag-Al P (09/23/16 17:00) Sodium Chloride 0.9% Flush (Ns Flush) (09/23/16 21:00) Sodium Chloride 0.9% Flush (Ns Flush) (09/23/16 17:00) Zolpidem (Ambien) (09/23/16 17:00) Ondansetron Inj (Zofran Inj) (09/23/16 17:00) Ob/Psych Drug Screen, Urine (09/23/16 16:47) Comprehensive Metabolic Panel (09/23/16 16:47) Protein Creat Ratio, Random Ur (09/23/16 16:47) Nifedipine (Procardia) (09/23/16 17:00) MDM MDM Medical Record Reviewed: Yes Interpretation(s) 36-year-old 5 para 2 at 35 weeks and 5 days Chronic hypertension Morbid obesity Rule out superimposed preeclampsia Plan External monitoring IV fluid hydration CBC CMP uric acid protein creatinine ratio Urinalysis Blood pressure every 15 minutes Hypertensive protocol initiated 24-hour observation Physician Communication Dr Gustafson present on labor and delivery Jessie Jeff MD Sep 23, 2016 17:10 Jessie Jeff MD Sep 23, 2016 17:10
[2016-09-23 17:30] LABS: BASOPHIL % 0.2 % (0.0-2.0); EOSINOPHIL # 0.1 TH/MM3 (0-0.4); EOSINOPHIL % 0.7 % (0.0-4.0); HEMATOCRIT 35.5 % (35.0-46.0); HEMO FLAGS DIFF FINAL; LYMPHOCYTE # 1.7 TH/MM3 (1.0-4.8); MEAN CELL VOLUME 78.4 FL (80.0-100.0); MEAN CORPUSCULAR HEMOGLOBIN 25.2 PG (27.0-34.0); MEAN CORPUSCULAR HGB CONC 32.2 % (32.0-36.0); MONO % 9.7 % (0.0-8.0); NEUT % 73.4 % (16.0-70.0); PLATELET COUNT 238 TH/MM3 (150-450); RED BLOOD COUNT 4.53 MIL/MM3 (4.00-5.30); RED CELL DISTRIBUTION WIDTH 15.3 % (11.6-17.2); WHITE BLOOD COUNT 10.9 TH/MM3 (4.0-11.0)
[2016-09-23] MEDS ORDERED: MAGNESIUM SULFATE 4 GM PREMIX 100 ML ONE (17:35)
[2016-09-23] MEDS ORDERED: MAGNESIUM SULFATE 40 GM PREMIX 1,000 ML ONE (17:36)
[2016-09-23] MEDS ORDERED: MAGNESIUM SULFATE 40 GM PREMIX 1,000 ML IV SCH (17:39)
[2016-09-23] MEDS ORDERED: SODIUM CHLORIDE 0.9% FLUSH 5 ML FLUSH IV PRN (17:45)
[2016-09-23] MEDS ORDERED: CALCIUM GLUCONATE 10% 1 GM/10 ML VIAL IV PUSH PRN (17:45)
[2016-09-23] MEDS ORDERED: MAGNESIUM SULFATE 4 GM PREMIX 100 ML IV ONE (17:45)
[2016-09-23] MEDS ORDERED: LABETALOL HCL 200 MG TAB PO SCH (18:00)
[2016-09-23] MEDS ORDERED: ONDANSETRON ODT 4 MG TAB PO PRN (18:00)
[2016-09-23 18:09] LABS: ANION GAP 15 MEQ/L (5-15); AST (GOT) 15 U/L (15-37); BICARBONATE 17.2 MEQ/L (21.0-32.0); BLOOD UREA NITROGEN 8 MG/DL (7-18); CHLORIDE 107 MEQ/L (98-107); GLOMERULAR FILTRATION RATE 103 ML/MIN (>89); POTASSIUM 3.8 MEQ/L (3.5-5.1); SODIUM (NA) 139 MEQ/L (136-145)
[2016-09-23 18:12] LABS: ALKALINE PHOSPHATASE 92 U/L (45-117); ALT (GPT) 15 U/L (10-53); TOTAL BILIRUBIN ADULT 0.1 MG/DL (0.2-1.0)
[2016-09-23 18:29] LABS: BACTERIA, URINE RARE /hpf; BLOOD, URINE TRACE (NEG); CALCIUM OXALATE CRYSTALS,URINE MOD /hpf; COMMENT (UR) CULTURE INDICATED; CULTURE IF INDICATED CULTURE INDICATED; GLUCOSE,URINE TRACE mg/dL (NEG); KETONE, URINE TRACE mg/dL (NEG); MUCUS URINE MANY /lpf (OCC); NITRITE,URINE NEG (NEG); PH, URINE 5.5 (5.0-8.5); SQUAMOUS EPITHELIAL CELL URINE 17 /hpf (0-5); URINE COLOR YELLOW (YELLW/STRAW)
[2016-09-23] MEDS ORDERED: NIFEdipine 10 MG CAP PO PRN (18:30)
[2016-09-23 18:31] LABS: AMPHETAMINE, URINE NEG (NEG); BARBITURATES, URINE NEG (NEG); COCAINE, URINE NEG (NEG)
[2016-09-23] MEDS ORDERED: LABETALOL HCL 100 MG/20 ML VIAL IV PUSH PRN (18:45)
[2016-09-23] MEDS ORDERED: PILL SPLITTER OTHER PRN (19:15)
[2016-09-23] MEDS ORDERED: LABETALOL HCL 200 MG TAB PO ONE (19:15)
[2016-09-23] MEDS ORDERED: NS 1000 ML XX PRN (19:15)
[2016-09-23] MEDS ORDERED: DINOPROSTONE 10 MG INSERT-LEAVE FOR 12 HOURS VAGINAL ONE (19:15)
[2016-09-23] MEDS ORDERED: SODIUM CHLORIDE 0.9% FLUSH 5 ML FLUSH IV SCH (21:00)
[2016-09-23] MEDS ORDERED: OXYTOCIN 30 UNITS-500ML PREMIX 500 ML IV SCH (21:00)
[2016-09-23] MEDS ORDERED: LABETALOL HCL 300 MG TAB PO SCH ×2 (21:00)
[2016-09-23] MEDS ORDERED: SODIUM CHLORIDE 0.9% FLUSH 5 ML FLUSH IVF SCH (21:00)
[2016-09-24] VITALS (126 sets, daily range): BP systolic 104–155; BP diastolic 58–106; PULSE 8–103; RESP 16–18; TEMP 97.5–97.9; O2SAT 93–100
[2016-09-24] MEDS ORDERED: NS 500 ML BOLUS IV PRN (00:30)
[2016-09-24] MEDS ORDERED: OXYTOCIN 30 UNITS 500ML PREMIX IV ONE (00:30)
[2016-09-24] MEDS ORDERED: CITRIC ACID-SODIUM CITRATE LIQ 30 ML UDC PO SCH (00:30)
[2016-09-24] MEDS ORDERED: LACTATED RINGER'S 1000 ML IV SCH (00:30)
[2016-09-24] MEDS ORDERED: NS 1000 ML IV PRN (00:30)
[2016-09-24] MEDS ORDERED: LIDOCAINE HCL 1% 50 ML VIAL I-DERMAL PRN (00:30)
[2016-09-24] MEDS ORDERED: LIDOCAINE HCL 1% 50 ML VIAL INFIL PRN (00:30)
[2016-09-24] MEDS ORDERED: MINERAL OIL 10 ML VIAL TOP PRN (00:30)
[2016-09-24] MEDS ORDERED: ONDANSETRON HCL 4 MG/2 ML VIAL IV PRN (00:30)
[2016-09-24] MEDS ORDERED: LACTATED RINGER'S 1000 ML BOLUS IV PRN (00:30)
[2016-09-24 05:57] LABS: HEMATOCRIT 33.8 % (35.0-46.0); MEAN CELL VOLUME 78.1 FL (80.0-100.0); MEAN CORPUSCULAR HEMOGLOBIN 24.9 PG (27.0-34.0); MEAN CORPUSCULAR HGB CONC 31.9 % (32.0-36.0); PLATELET COUNT 232 TH/MM3 (150-450); RED BLOOD COUNT 4.33 MIL/MM3 (4.00-5.30); RED CELL DISTRIBUTION WIDTH 15.6 % (11.6-17.2)
[2016-09-24 05:59] LABS: REVIEW FLAG FINAL
[2016-09-24] MEDS ORDERED: PENICILLIN G POT 5,000,000 UNITS/NS 100 ML(Mini-Bag Plus) IV ONE ×2 (06:00)
[2016-09-24 06:32] LABS: ALKALINE PHOSPHATASE 94 U/L (45-117); ALT (GPT) 14 U/L (10-53); ANION GAP 11 MEQ/L (5-15); AST (GOT) 10 U/L (15-37); BICARBONATE 20.6 MEQ/L (21.0-32.0); BLOOD UREA NITROGEN 6 MG/DL (7-18); CHLORIDE 105 MEQ/L (98-107); GLOMERULAR FILTRATION RATE 162 ML/MIN (>89); POTASSIUM 3.8 MEQ/L (3.5-5.1); SODIUM (NA) 137 MEQ/L (136-145); TOTAL BILIRUBIN ADULT 0.2 MG/DL (0.2-1.0)
[2016-09-24] MEDS ORDERED: OXYTOCIN 10 UNIT/ML AMP ONE (07:10)
[2016-09-24] MEDS ORDERED: ceFAZolin INJ 1,000 MG VIAL ONE (07:10)
--- NOTE | 2016-09-24 07:14 | HHI.PR ---
Subjective Remarks Feeling ok No RUC, ROM or bleeding No SOB or Chest pain/pressure Objective Vital Signs Date Time Temp Pulse Resp B/P Pulse Ox O2 Delivery O2 Flow Rate FiO2 09/24/16 06:18 103 155/99 09/24/16 06:15 97.5 18 09/24/16 06:01 103 149/106 09/24/16 05:21 18 09/24/16 05:00 97 123/83 09/24/16 04:01 101 128/84 09/24/16 03:01 100 138/97 09/24/16 02:06 97.9 18 09/24/16 02:01 100 118/70 09/24/16 01:20 18 09/24/16 01:01 97 124/77 09/24/16 00:05 102 114/64 09/23/16 23:01 104 121/87 09/23/16 22:01 106 130/89 09/23/16 21:15 97.9 18 09/23/16 21:01 100 129/76 09/23/16 20:01 109 149/94 09/23/16 19:30 118 09/23/16 19:27 113 140/91 09/23/16 19:25 111 09/23/16 19:20 110 09/23/16 19:16 116 151/83 09/23/16 19:15 111 09/23/16 19:12 18 09/23/16 19:10 115 09/23/16 19:05 114 09/23/16 19:01 110 164/90 09/23/16 19:00 116 09/23/16 18:55 116 09/23/16 18:50 115 09/23/16 18:47 18 09/23/16 18:46 118 148/92 09/23/16 18:30 121 156/104 09/23/16 18:16 114 160/94 09/23/16 18:11 118 18 155/94 09/23/16 18:06 122 161/96 09/23/16 18:00 116 163/95 09/23/16 17:58 18 09/23/16 17:56 118 151/86 09/23/16 17:55 18 09/23/16 17:50 117 125/66 09/23/16 17:23 116 177/104 09/23/16 17:22 112 188/123 09/23/16 17:15 114 181/115 09/23/16 17:01 124 166/110 09/23/16 16:40 124 164/92 09/23/16 16:31 128 166/102 09/23/16 16:26 126 173/106 09/23/16 16:21 124 173/104 09/23/16 16:15 123 165/100 09/23/16 16:10 128 142/94 09/23/16 16:09 122 135/101 Result Diagram: 09/24/16 0446 09/24/16 0446 Other Results Chest is clear CV RRR to slg tachycardic Abd is soft and NT , fundus is non tender Pelvic Cx is Closed/ 30%/very posterior/ firm Ext slight leg edema DTR +1 Assessment and Plan Assessment and Plan IUP @ 36 weeks Severe pre eclampsia She is on MG and her BPs are increasing again Her cervix is not inducible and she is getting sicker The tracing looks good and is Cat 1. Baby is very hard to trace Will proceed with a primary C/S now Possible GDM she did not take her 3hour OGTT and her hemoglobin A1C was slg elevated at 5.8 will notify nursery. Chronic hypertension and was on 500mg of labetalol bid prior to admission Obesity hard to monitor the baby. Will place PCDs on prior to the OR Elizabeth Gustafson MD Sep 24, 2016 07:14
[2016-09-24] MEDS ORDERED: MORPHINE SULFATE PF 5 MG/10 ML VIAL ONE (08:24)
[2016-09-24] MEDS ORDERED: fentaNYL CITRATE 250 MCG/5 ML AMP ONE ×2 (08:24)
[2016-09-24 08:32] LABS: BLOOD GAS O2 HGB SATURATION 7 % (90-100); CORD BLOOD GAS HCO3 27 mmol/L (21-29); CORD BLOOD GAS PCO2 64 mmHG (34-78); CORD BLOOD GAS PH 7.24 (7.14-7.42)
[2016-09-24 08:33] LABS: CORD BLOOD GAS PO2 9 mmHG (3.0-40.0); DRAW SITE CORD BLOOD; STAT NO
[2016-09-24] MEDS ORDERED: ASPIRIN EC 81 MG TABEC PO SCH (09:00)
[2016-09-24] MEDS ORDERED: HYDROmorphone HCL PF 2 MG/ML VIAL ONE ×2 (09:05→09:39)
[2016-09-24] MEDS ORDERED: MAGNESIUM SULFATE 40 GM PREMIX 1,000 ML IV SCH (09:06)
[2016-09-24] MEDS ORDERED: HYDROmorphone HCL PCA 6 MG/30 ML IV ONE ×2 (09:06→13:52)
[2016-09-24] MEDS ORDERED: RESP: ALBUTEROL 2.5 MG/3 ML NEB (PRN) ONE (09:12)
[2016-09-24] MEDS ORDERED: oxyCODONE/ACETAMINOPHEN 5 MG/325 MG TAB PO PRN ×2 (09:15)
[2016-09-24] MEDS ORDERED: OXYTOCIN 30 UNITS-500ML PREMIX 500 ML IV ONE ×2 (09:15)
[2016-09-24] MEDS ORDERED: IBUPROFEN 600 MG TAB PO PRN (09:15)
[2016-09-24] MEDS ORDERED: ZOLPIDEM TARTRATE 5 MG TAB PO PRN (09:15)
[2016-09-24] MEDS ORDERED: SODIUM CHLORIDE 0.9% FLUSH 5 ML FLUSH IV PRN (09:15)
[2016-09-24] MEDS ORDERED: NIFEdipine 10 MG CAP PO PRN (09:15)
[2016-09-24] MEDS ORDERED: CALCIUM GLUCONATE 10% 1 GM/10 ML VIAL IV PUSH PRN (09:15)
[2016-09-24] MEDS ORDERED: LABETALOL HCL 300 MG TAB PO ONE (09:15)
[2016-09-24] MEDS ORDERED: NALOXONE HCL 0.4 MG/ML AMP IV PRN (10:00)
[2016-09-24] MEDS ORDERED: PENICILLIN G POT 2,500,000 UNITS/NS 100 ML IV SCH ×2 (10:00)
[2016-09-24] MEDS ORDERED: HYDROmorphone HCL PCA 6 MG/30 ML IV SCH (10:00)
[2016-09-24] MEDS ORDERED: diphenhydrAMINE HCL 25 MG CAP PO PRN (10:00)
[2016-09-24] MEDS ORDERED: diphenhydrAMINE HCL 50 MG/ML VIAL IV PUSH PRN (10:00)
[2016-09-24] MEDS: PCA - TOTAL MG DILAUDID DELIVERED PER SHIFT SCH ×2 (14:00→22:00)
[2016-09-24] MEDS ORDERED: LACTATED RINGER'S 1000 ML INJ 1,000 ML IV SCH (14:06)
[2016-09-24] MEDS ORDERED: OXYTOCIN 30 UNITS-500ML PREMIX 500 ML IV PRN (19:15)
[2016-09-24] MEDS ORDERED: SODIUM CHLORIDE 0.9% FLUSH 5 ML FLUSH IV SCH (21:00)
[2016-09-24] MEDS: LABETALOL HCL 200 MG TAB PO SCH (21:00)
[2016-09-24] MEDS: LABETALOL HCL 300 MG TAB PO SCH (21:00)
[2016-09-25] VITALS (37 sets, daily range): BP systolic 122–180; BP diastolic 75–102; PULSE 18–107; RESP 16–18; TEMP 97.7–98.1; O2SAT 95–96
[2016-09-25] MEDS ORDERED: HYDROmorphone HCL PCA 6 MG/30 ML IV ONE (00:38)
[2016-09-25 05:19] LABS: AUTOMATED NEUTROPHIL # 7.6 TH/MM3 (1.8-7.7); BASOPHIL % 0.3 % (0.0-2.0); EOSINOPHIL # 0.1 TH/MM3 (0-0.4); EOSINOPHIL % 0.8 % (0.0-4.0); HEMATOCRIT 29.2 % (35.0-46.0); HEMO FLAGS DIFF FINAL; LYMPH % 19.2 % (9.0-44.0); LYMPHOCYTE # 2.1 TH/MM3 (1.0-4.8); MEAN CELL VOLUME 77.8 FL (80.0-100.0); MEAN CORPUSCULAR HEMOGLOBIN 26.1 PG (27.0-34.0); MEAN CORPUSCULAR HGB CONC 33.5 % (32.0-36.0); MONO % 9.8 % (0.0-8.0); NEUT % 69.9 % (16.0-70.0); PLATELET COUNT 222 TH/MM3 (150-450); RED BLOOD COUNT 3.75 MIL/MM3 (4.00-5.30); RED CELL DISTRIBUTION WIDTH 15.6 % (11.6-17.2); WHITE BLOOD COUNT 10.9 TH/MM3 (4.0-11.0)
[2016-09-25] MEDS: PCA - TOTAL MG DILAUDID DELIVERED PER SHIFT SCH (05:33)
[2016-09-25] MEDS ORDERED: WITCH HAZEL 50%/GLYCERIN 12.5% 40 PAD JAR TOP PRN (07:45)
[2016-09-25] MEDS ORDERED: BENZOCAINE 20% TOPICAL SPRAY 60 ML CAN TOP PRN (07:45)
[2016-09-25] MEDS ORDERED: ALUMINUM/MAGNESIUM/SIMETH 30 ML CUP PO PRN (07:45)
[2016-09-25] MEDS ORDERED: DISCONTINUE ALL PREVIOUS ORDERS XX ONE (07:45)
[2016-09-25] MEDS ORDERED: ACETAMINOPHEN 325 MG TAB PO PRN (07:45)
[2016-09-25] MEDS ORDERED: ZOLPIDEM TARTRATE 5 MG TAB PO PRN (07:45)
[2016-09-25] MEDS ORDERED: ONDANSETRON ODT 4 MG TAB PO PRN ×2 (07:45→19:00)
[2016-09-25] MEDS: LABETALOL HCL 200 MG TAB PO SCH ×2 (08:13→21:05)
[2016-09-25] MEDS: LABETALOL HCL 300 MG TAB PO SCH ×2 (08:13→21:05)
[2016-09-25] MEDS: oxyCODONE/ACETAMINOPHEN 5 MG/325 MG TAB PO PRN (10:36)
[2016-09-25] MEDS ORDERED: NIFEdipine 30 MG SUSTAINED RELEASE TAB PO ONE (12:15)
--- NOTE | 2016-09-25 12:27 | HHI.OB ---
Subjective Post Operative Day: 1 Remarks feeling nauseous, has mild headache, afraid to eat bc doesn't want to throw up; voided, wants to discuss how to care for incision as this was pt's first Objective Vitals/I&O Vital Signs Date Time Temp Pulse Resp B/P Pulse Ox O2 Delivery O2 Flow Rate FiO2 09/25/16 10:40 143/96 09/25/16 10:30 103 09/25/16 10:30 18 18 172/98 09/25/16 10:30 97.9 09/25/16 09:10 18 09/25/16 09:01 107 159/94 09/25/16 08:36 16 09/25/16 08:31 100 158/95 09/25/16 08:21 94 148/75 09/25/16 08:01 96 154/102 09/25/16 07:31 96 143/98 09/25/16 07:12 16 95 09/25/16 07:08 93 151/85 09/25/16 07:00 98.0 09/25/16 06:30 94 133/91 09/25/16 06:10 92 142/83 09/25/16 06:00 134/80 09/25/16 06:00 85 09/25/16 06:00 91 09/25/16 05:00 97.7 95 09/25/16 04:59 17 09/25/16 04:31 91 146/80 09/25/16 04:01 91 141/87 09/25/16 03:31 87 140/81 09/25/16 03:11 18 09/25/16 03:01 86 137/78 09/25/16 03:00 18 09/25/16 02:31 85 134/84 09/25/16 02:01 91 145/95 09/25/16 01:31 130/77 09/25/16 01:31 87 09/25/16 01:23 98.1 09/25/16 01:20 97 96 09/25/16 01:17 17 09/25/16 01:01 86 126/79 09/25/16 00:51 18 09/25/16 00:38 17 09/25/16 00:32 88 122/89 09/24/16 23:37 97 3/17/17 23:36 18 3/17/17 23:31 90 132/76 317/17 22:41 97 17/17 22:38 18 17/17 22:01 93 143/92 17/17 21:43 95 17/17 21:42 97.8 17/17 21:41 17 17/17 21:31 85 141/80 17/17 21:01 84 124/78 317/17 20:31 89 118/68 17/17 20:30 96 17/17 20:26 18 17/17 20:25 89 98 17/17 20:01 84 118/74 17/17 19:40 91 98 17/17 19:35 97.7 96 17/17 19:34 18 17/17 19:33 8 1717 19:31 89 131/83 17/17 18:31 90 147/78 17/17 18:01 88 138/79 17/17 17:34 86 128/73 17/17 17:31 84 114/64 17/17 17:30 89 98 17/17 17:25 89 97 17/17 17:20 94 98 17/17 17:15 86 97 17/17 17:10 88 98 17/17 17:05 93 97 17/17 17:01 87 104/58 17/17 17:00 17 17/17 17:00 90 98 17/17 16:59 97.8 17/17 16:55 90 98 17/17 16:50 88 98 17/17 16:45 86 97 17/17 16:40 86 97 17/17 16:35 91 99 17/17 16:31 98 146/82 17/17 16:30 90 98 17/17 16:25 91 98 17/17 16:20 90 98 17/17 16:15 93 98 17/17 16:10 92 99 17/17 16:05 95 99 17/17 16:01 86 142/79 17/17 16:00 94 99 3/17/17 15:55 91 98 17/17 15:50 86 98 17/17 15:45 85 98 17/17 15:40 88 98 17/17 15:31 92 135/82 17/17 15:30 94 98 17/17 15:25 86 96 17/17 15:20 89 97 17/17 15:15 89 98 17/17 15:10 91 98 17/17 15:05 94 96 17/17 15:01 93 17 141/85 17/17 15:00 94 97 17/17 14:55 86 96 17/17 14:50 96 17/17 14:45 88 17/17 14:45 96 17/17 14:40 86 96 17/17 14:35 86 95 17/17 14:31 84 130/81 17/17 14:30 86 96 17/17 14:25 84 96 1717 14:20 85 96 09/24/17 14:15 92 97 17/17 14:10 83 97 17/17 14:05 85 96 17/17 14:01 93 150/91 17/17 14:00 89 100 17/17 14:00 17 17/17 13:55 95 17/17 13:55 89 17/17 13:52 17 17/17 13:45 94 97 17/17 13:45 18 17/17 13:40 90 97 17/17 13:35 89 96 17/17 13:31 91 135/79 17/17 13:30 90 96 17/17 13:25 94 97 17/17 13:20 93 96 17/17 13:15 94 17/17 13:15 98 17/17 13:05 95 96 17/17 13:01 90 142/79 17/17 13:00 94 97 17/17 12:55 94 96 17/17 12:50 94 17/17 12:50 96 17/17 12:45 87 95 17/17 12:40 89 96 3/17/17 12:37 17 3/17/17 12:35 86 09/24/16 12:35 96 09/24/16 12:34 88 143/89 09/24/16 12:30 88 95 09/24/16 12:25 90 97 Result Diagram: 09/25/16 0455 09/24/16 0446 Objective Remarks GENERAL: Well-nourished, well-developed patient. Morbidly obese. CARDIOVASCULAR: Regular rate and rhythm without murmurs, gallops, or rubs. RESPIRATORY: Breath sounds equal bilaterally. No accessory muscle use. ABDOMEN/GI: Abdomen soft, protuberant, non-tender, bowel sounds present. Incision: bandage in place, dry Fundus: Firm, non-tender at umbilicus. GENITOURINARY: Light bleeding. EXTREMITIES: No cyanosis or edema, non-tender, without signs of DVT. Medications and IVs Current Medications Medications (Trade) Dose Ordered Sig/Mindy Route Start Time Stop Time Status Last Admin (NS Flush) 2 ml BID IV 09/24/16 21:00 (NS Flush) 2 ml UNSCH PRN IV 09/24/16 09:15 (M-M-R Ii Inj) 0.5 ml ONCE ONCE SQ 09/25/16 16:00 09/25/16 16:01 Diphtheria/ Tetanus/Acell Pertussis 0.5 ml 0.5 ml ONCE ONCE IM 09/25/16 16:00 09/25/16 16:01 (Magnesium Sulfate 40 Gm Premix) 1,000 ml @ 50 mls/hr Q20H IV 09/24/16 09:06 (Calcium Gluconate Inj) 1 gm UNSCH PRN IV PUSH 09/24/16 09:15 (Trandate) 200 mg Q12HR PO 09/24/16 21:00 09/25/16 08:13 (Narcan Inj) 0.4 mg UNSCH PRN IV 09/24/16 10:00 (Benadryl) 25 mg Q6H PRN PO 09/24/16 10:00 09/24/16 23:41 (Benadryl Inj) 25 mg Q6H PRN IV PUSH 09/24/16 10:00 (Trandate) 300 mg Q12HR PO 09/24/16 21:00 09/25/16 08:13 (Tylenol) 650 mg Q4H PRN PO 09/25/16 07:45 (Motrin) 600 mg Q6H PRN PO 09/25/16 07:45 (Percocet 5-325 Mg) 1 tab Q4H PRN PO 09/25/16 07:45 09/25/16 10:36 (Percocet 5-325 Mg) 2 tab Q4H PRN PO 09/25/16 07:45 (Americaine 20% Top Spr) 1 spray Q4H PRN TOP 09/25/16 07:45 (Tucks Pads) 1 applic Q6H PRN TOP 09/25/16 07:45 (Tala-Colace) 2 tab Q12H PRN PO 09/25/16 07:45 (Ambien) 5 mg HS PRN PO 09/25/16 07:45 (Mag-Al Plus Susp Liq) 15 ml Q8H PRN PO 09/25/16 07:45 (Zofran Odt) 4 mg Q6H PRN PO 09/25/16 07:45 Assessment/Plan Problem List: (1) S/P primary low transverse (2) Severe pre-eclampsia affecting third Assessment and Plan POD#1 Severe PreE: s/p 24h of magnesium sulfate, BP's remain high on labetalol 500mg po bid; will add nifedipine 30mg daily, suspect anxiety also a component of BP this AM as is NICU status; d/w pt goal today is eat & ambulate, tomorrow shower & remove dressing; continue to monitor closely, not meeting d/c criteria Discharge Planning not meeting criteria Jackie Tolbert MD Sep 25, 2016 12:27
[2016-09-25] MEDS: IBUPROFEN 600 MG TAB PO PRN (15:14)
[2016-09-25] MEDS: oxyCODONE/ACETAMINOPHEN 5 MG/325 MG 2 TABS PO PRN ×2 (15:15→19:47)
[2016-09-25] MEDS ORDERED: DIPHTH/TETANUS/ACEL PERTUSSIS (BOOSTER) 0.5 ML VIAL/PFS IM ONE (16:00)
[2016-09-25] MEDS ORDERED: MEASLES, MUMPS, RUBELLA VACCINE 0.5 ML VIAL SQ ONE (16:00)
[2016-09-26] VITALS (7 sets, daily range): BP systolic 98–151; BP diastolic 58–93; PULSE 83–100; RESP 16–20; TEMP 97.9–99.9
[2016-09-26] MEDS: oxyCODONE/ACETAMINOPHEN 5 MG/325 MG 2 TABS PO PRN ×3 (01:13→19:30)
[2016-09-26] MEDS: IBUPROFEN 600 MG TAB PO PRN ×3 (01:13→14:27)
[2016-09-26] MEDS: LABETALOL HCL 300 MG TAB PO SCH ×2 (09:00→21:47)
[2016-09-26] MEDS: LABETALOL HCL 200 MG TAB PO SCH ×2 (09:00→17:15)
--- NOTE | 2016-09-26 10:08 | HHI.OB ---
Subjective Post Operative Day: 2 Remarks s/p primary LTCD at 36w1d due to PreEclampsia with severe features up in NICU visiting daughter this AM Objective Vitals/I&O Vital Signs Date Time Temp Pulse Resp B/P Pulse Ox O2 Delivery O2 Flow Rate FiO2 09/26/16 09:00 115/78 09/26/16 08:00 98.4 87 18 131/89 09/26/16 04:11 16 09/26/16 04:11 83 98/58 09/26/16 00:29 97.9 100 18 116/66 09/25/16 19:48 138/88 09/25/16 19:48 98.0 89 18 09/25/16 15:41 140/84 09/25/16 13:30 153/99 09/25/16 13:30 140/91 09/25/16 12:28 101 09/25/16 12:00 180/94 09/25/16 10:40 143/96 09/25/16 10:30 103 09/25/16 10:30 18 18 172/98 09/25/16 10:30 97.9 Result Diagram: 09/25/16 0455 09/24/16 0446 Objective Remarks GENERAL: Well-nourished, well-developed patient. Morbidly obese. CARDIOVASCULAR: Regular rate and rhythm without murmurs, gallops, or rubs. RESPIRATORY: Breath sounds equal bilaterally. No accessory muscle use. ABDOMEN/GI: Abdomen soft, protuberant, non-tender, bowel sounds present. Incision: not examined due to pt up in NICU with infant; per nursing clean & dry Fundus: Firm, non-tender at umbilicus. GENITOURINARY: Light bleeding. EXTREMITIES: No cyanosis or edema, non-tender, without signs of DVT. Medications and IVs Current Medications Medications (Trade) Dose Ordered Sig/Mindy Route Start Time Stop Time Status Last Admin (NS Flush) 2 ml BID IV 09/24/16 21:00 IV Flush 2 ml 2 ml UNSCH PRN IV 09/24/16 09:15 (Magnesium Sulfate 40 Gm Premix) 1,000 ml @ 50 mls/hr Q20H IV 09/24/16 09:06 (Calcium Gluconate Inj) 1 gm UNSCH PRN IV PUSH 09/24/16 09:15 (Trandate) 200 mg Q12HR PO 09/24/16 21:00 09/25/16 21:05 (Narcan Inj) 0.4 mg UNSCH PRN IV 09/24/16 10:00 (Benadryl) 25 mg Q6H PRN PO 09/24/16 10:00 09/24/16 23:41 (Benadryl Inj) 25 mg Q6H PRN IV PUSH 09/24/16 10:00 (Trandate) 300 mg Q12HR PO 09/24/16 21:00 09/25/16 21:05 (Tylenol) 650 mg Q4H PRN PO 09/25/16 07:45 (Motrin) 600 mg Q6H PRN PO 09/25/16 07:45 09/26/16 08:00 (Percocet 5-325 Mg) 1 tab Q4H PRN PO 09/25/16 07:45 09/25/16 10:36 (Percocet 5-325 Mg) 2 tab Q4H PRN PO 09/25/16 07:45 09/26/16 07:59 (Americaine 20% Top Spr) 1 spray Q4H PRN TOP 09/25/16 07:45 (Tucks Pads) 1 applic Q6H PRN TOP 09/25/16 07:45 (Tala-Colace) 2 tab Q12H PRN PO 09/25/16 07:45 (Ambien) 5 mg HS PRN PO 09/25/16 07:45 (Mag-Al Plus Susp Liq) 15 ml Q8H PRN PO 09/25/16 07:45 (Zofran Odt) 4 mg Q6H PRN PO 09/25/16 07:45 09/26/16 05:10 (Zofran Odt) 8 mg Q8H PRN PO 09/25/16 19:00 09/25/16 18:50 Assessment/Plan Problem List: (1) S/P primary low transverse (2) Severe pre-eclampsia affecting third Assessment and Plan POD#2 Severe PreE: s/p 24h of magnesium sulfate, BP's labile over past 24h; on labetalol 500mg po bid; yesterday was given 1 time dose of nifedipine 30mg due to continued severe range pressures; this AM dose of labetalol held due to low normal BP; continue to monitor closely, not yet meeting d/c criteria encourage ambulation, shower daily, wound care discussed Discharge Planning not meeting criteria Jackie Tolbert MD Sep 26, 2016 10:08
[2016-09-26] MEDS: oxyCODONE/ACETAMINOPHEN 5 MG/325 MG TAB PO PRN (14:29)
[2016-09-27] VITALS (7 sets, daily range): BP systolic 122–145; BP diastolic 85–90; PULSE 86–91; RESP 18–20; TEMP 98.3–98.4
[2016-09-27] MEDS: IBUPROFEN 600 MG TAB PO PRN ×3 (04:35→17:03)
[2016-09-27] MEDS: oxyCODONE/ACETAMINOPHEN 5 MG/325 MG 2 TABS PO PRN ×3 (04:35→15:27)
[2016-09-27] MEDS: LABETALOL HCL 300 MG TAB PO SCH (10:04)
--- NOTE | 2016-09-27 10:22 | HHI.OB ---
Subjective Post Operative Day: 3 Objective Vitals/I&O Vital Signs Date Time Temp Pulse Resp B/P Pulse Ox O2 Delivery O2 Flow Rate FiO2 09/27/16 08:16 98.3 20 09/27/16 08:15 136/89 09/27/16 08:15 86 09/27/16 00:00 98.4 89 20 122/85 09/26/16 19:30 95 124/85 09/26/16 19:30 99.9 20 09/26/16 17:14 151/93 09/26/16 12:00 118/76 Result Diagram: 09/25/16 0455 09/24/16 0446 Objective Remarks GENERAL: Well-nourished, well-developed patient. Morbidly obese. CARDIOVASCULAR: Regular rate and rhythm without murmurs, gallops, or rubs. RESPIRATORY: Breath sounds equal bilaterally. No accessory muscle use. ABDOMEN/GI: Abdomen soft, protuberant, non-tender, bowel sounds present. Incision: clean & dry Fundus: Firm, non-tender at umbilicus. GENITOURINARY: Light bleeding. EXTREMITIES: No cyanosis or edema, non-tender, without signs of DVT. Medications and IVs Current Medications Medications (Trade) Dose Ordered Sig/Mindy Route Start Time Stop Time Status Last Admin (NS Flush) 2 ml BID IV 09/24/16 21:00 IV Flush 2 ml 2 ml UNSCH PRN IV 09/24/16 09:15 (Magnesium Sulfate 40 Gm Premix) 1,000 ml @ 50 mls/hr Q20H IV 09/24/16 09:06 (Calcium Gluconate Inj) 1 gm UNSCH PRN IV PUSH 09/24/16 09:15 (Trandate) 200 mg Q12HR PO 09/24/16 21:00 09/26/16 17:15 (Narcan Inj) 0.4 mg UNSCH PRN IV 09/24/16 10:00 (Benadryl) 25 mg Q6H PRN PO 09/24/16 10:00 09/24/16 23:41 (Benadryl Inj) 25 mg Q6H PRN IV PUSH 09/24/16 10:00 (Trandate) 300 mg Q12HR PO 09/24/16 21:00 09/27/16 10:04 (Tylenol) 650 mg Q4H PRN PO 09/25/16 07:45 (Motrin) 600 mg Q6H PRN PO 09/25/16 07:45 09/27/16 04:35 (Percocet 5-325 Mg) 1 tab Q4H PRN PO 09/25/16 07:45 09/26/16 14:29 (Percocet 5-325 Mg) 2 tab Q4H PRN PO 09/25/16 07:45 09/27/16 04:35 (Americaine 20% Top Spr) 1 spray Q4H PRN TOP 09/25/16 07:45 (Tucks Pads) 1 applic Q6H PRN TOP 09/25/16 07:45 (Tala-Colace) 2 tab Q12H PRN PO 09/25/16 07:45 (Ambien) 5 mg HS PRN PO 09/25/16 07:45 (Mag-Al Plus Susp Liq) 15 ml Q8H PRN PO 09/25/16 07:45 (Zofran Odt) 4 mg Q6H PRN PO 09/25/16 07:45 09/26/16 05:10 (Zofran Odt) 8 mg Q8H PRN PO 09/25/16 19:00 09/25/16 18:50 Assessment/Plan Problem List: (1) S/P primary low transverse Plan: routine (2) Severe pre-eclampsia affecting third Plan: continue to monitor (3) Anemia Plan: will treat pp with daily iron Assessment and Plan POD#3 pt dong well bp improving, will monitor today pain well managed with oral pain medication infant doing well in nursery routine Discharge Planning will monitor bps. and consider dc home later today Nereyda Scott Sep 27, 2016 10:22
[2016-09-27] MEDS: DOCUSATE SODIUM 50 MG/SENNA 8.6 MG TAB PO PRN ×2 (11:21→15:28)
[2016-09-27] MEDS ORDERED: OXYC1TAB63 PO (13:41)
[2016-09-27] MEDS ORDERED: IBUP-232 PO (13:41)
[2016-09-27] MEDS ORDERED: LABE300T PO (13:44)
--- NOTE | 2016-09-27 14:46 | HHI.DCPOC ---
Discharge Care Plan Diagnosis: (1) Severe pre-eclampsia affecting third (2) Anemia (3) S/P primary low transverse Your Health Problems Are: delivery Additional Problems CALL THE OFFICE OR RETURN TO HOSPITAL FOR SIGNS AND SYMPTOMS OF PRE-ECLAMPSIA Report Symptoms to Your Doctor -Temperate above 100.5 degrees -Redness, of incision or excessive or foul smelling drainage -Unusual pain or calf pain -Increased vaginal bleeding -Painful or difficulty urinating -Feelings of extreme sadness or anxiety after 2 weeks Goals to Promote Your Health * To prevent worsening of your condition and complications * To maintain your health at the optimal level Directions to Meet Your Goals Take your medications as prescribed Follow your dietary instruction Follow activity as directed Ensure plenty of rest for recovery Drink fluids for hydration Keep your appointments as scheduled Take your immunizations and boosters as scheduled If your symptoms worsen call your PCP, if no PCP go to Urgent Care Center or Emergency Room Smoking is Dangerous to Your Health. Avoid second hand smoke Call the 24-hour crisis hotline for domestic abuse at Nereyda Scott Sep 27, 2016 14:46
--- NOTE | 2016-09-27 14:47 | HHI.DS ---
Admission Date Sep 23, 2016 at 17:36 Discharge Date: Sep 27, 2016 Admitting Diagnosis SEVERE PRE-ECLAMPSIA 35 + WEEKS GESTATION GESTATIONAL DIABETES Diagnosis: (1) Severe pre-eclampsia affecting third Diagnosis: Principal (2) Anemia Diagnosis: Secondary (3) S/P primary low transverse Diagnosis: Principal (4) 35 weeks gestation of Diagnosis: Principal Delivery Date: Sep 24, 2016 : Primary Reason: pre eclampsia gestatinal diabetes FAILED INDUCTION : Female Brief History This patient is a 36-year-old 5 para 203 2 EDC is October 22, 2016 she's presently at 35 weeks and 5 days patient was seen in the office again by Dr. cueva of her blood pressure was found to be elevated she had complaints of a headache and feeling dizzy she was sent over to labor and delivery for evaluation no vomiting no rupture of membranes no vaginal bleeding the baby is active no major contractions has low back pain and pressure in her lower abdomen patient has been seen on labor and delivery for the past 3 days she has a history of chronic hypertension she is on labetalol 500 mg by mouth twice a day she states she did take her dose this morning Upon arrival to labor and delivery she was given Procardia 10 mg by mouth Hospital Course severe pre-eclampsia, on magnesium sulfate, failed induction, proceeded with primary c section, 36 week infant doing well in nicu, pt continued to have increased and labile bp, we adjusted her bp meds, currently bp are stable, we will follow up in office this week Pt Condition on Discharge: Good Discharge Disposition: Discharge Home Discharge Instructions Diet Instructions: As Tolerated, No Restrictions Activities You Can Perform: Regular-No Restrictions, Shower Only-No Bath Activities to Avoid: Strenuous Activity, Driving, Sexual Activity Follow up Referrals: [facility] - 3-5 Days @ [facility] New Medications: Ibuprofen (Ibuprofen) 600 Mg Tab 600 MG PO Q6H Pain Management #30 Ref 1 TAB Labetalol (Labetalol) 300 Mg Tab 300 MG PO Q12HR hypertension #60 Ref 2 TAB Oxycodone-Acetaminophen (Oxycodone-Acetaminophen) 5-325 mg Tab 1 TAB PO Q4H moderated pain #30 TAB Continued Medications: Albuterol 18 GM Inh (Ventolin Hfa 18 GM Inh) 90 Mcg/Act Aer 2 PUFF INH Q4H PRN SHORTNESS OF BREATH #1 Ref 0 INHALER Aspirin (Aspirin) 81 Mg Tabdr 81 MG PO DAILY TAB Labetalol (Labetalol) 300 Mg Tab 300 MG PO Q12HR PRN hypertension #60 Ref 4 TAB Vitamin (Calna) 1 Tab Tab Discontinued Medications: Ondansetron (Zofran) 4 Mg Tab 4 MG PO Q6HR PRN NAUSEA OR VOMITING Ref 0 TAB Nereyda Scott Sep 27, 2016 14:47
[2016-09-29 12:08] LABS: BATH SALTS (MDPV) UR NEG (NEG); ECSTASY (MDMA) UR NEG (NEG); HEROIN (6-ACETYLMORPHINE) UR NEG (NEG); K2 SPICE UR NEG (NEG); OBMETHADONE UR NEG (NEG); PHENCYCLIDINE URINE NEG (NEG)
[2016-09-29 12:09] LABS: OXYCODONE (PERCODAN) NEG (NEG)
--- NOTE | 2016-09-30 09:40 | MP ---
cc: Elizabeth SEGOVIA MD DATE OF SURGERY: 09/24/2016 PREOPERATIVE DIAGNOSIS 1. Intrauterine at 35 weeks. 2. Severe preeclampsia. POSTOPERATIVE DIAGNOSIS 1. Intrauterine at 35 weeks. 2. Severe preeclampsia. PROCEDURE Primary low transverse section. ANESTHESIA Spinal followed by general. FINDINGS Normal uterus, tubes and ovaries, premature with decent Apgars of 1 and 8. The uterus, tubes and ovaries, posterior and anterior cul-de-sac were all normal. COMPLICATIONS She had a small hematoma 3 x 4 cm in the left area of the uterine artery which was stable. COUNTS Counts were correct. ESTIMATED BLOOD LOSS 600 ccs. FLUIDS Crystalloids. CONDITION The patient tolerated the procedure well and went to the recovery room in good condition. INDICATIONS FOR PROCEDURE This is a lady who came in for preeclampsia workup. The workup was positive for severe preeclampsia with very high blood pressures. We tried to induce her overnight since she has had so many babies vaginally, however, after a night of cervical ripening, she still was not even justin. We tried her on some Pitocin for a short period without any results. At this point we decided to go ahead and proceed with a section as she was getting sicker. PROCEDURE Under an adequate level of anesthesia, she was prepped and draped for abdominal surgery. A Pfannenstiel incision was made and carried down to the fascia. The fascia was taken off the rectus muscle by blunt and sharp dissection. The rectus muscles were spread bluntly and the peritoneum was entered under direct vision without difficulty. The incision was extended with care to avoid the urinary bladder. A bladder blade was placed and a bladder flap created in the usual fashion. The uterine incision was made in a transverse manner along the lower uterine segment which was not well-developed. It was taken down in the midline until the intrauterine cavity was entered. A large amount of clear fluid was noted. The vertex was grasped with a suction cup and delivered. The hypopharynx and nasopharynx were suctioned and the remainder of the delivered without difficulty. The cord was doubly clamped and cut and the handed to the resuscitation team present. The placenta was then delivered manually. The uterus was curettaged twice with a wet lap and irrigated with a large amount of fluid. The uterine incision was then repaired with 2-0 Vicryl in a running locking fashion, with the second layer imbricating the first. Hemostasis was excellent. The cul-de-sac and gutters were cleaned of blood and debris. The uterus was delivered back into the abdomen. The rectus muscles were reapproximated with 0 Vicryl in interrupted fashion. The fascia was repaired from lateral to midline with 0 Vicryl and the subcu was repaired with 3-0 Vicryl. The skin was repaired with a 4-0 Vicryl in a subcuticular manner. The wound was sterilely dressed. She tolerated the procedure well and went to the recovery room in satisfactory condition. R. MD SOMMER Hernandez/JUSTINE /7:13 AM /9:32 AM
== END 2016-09-27 17:05 | disposition home or self-care (01) | DRG 765 ==
LOC: HOBED 15:47 → H2EA 16:42 → OBSVTOIN 17:36 → H2EA 17:41 → H1EA 09-25 10:14
PROVIDERS: ADMIT Obstetrics & Gynecology; ATTEND Obstetrics & Gynecology
PROC: 10D00Z1 Extraction of Products of Conception, Low, Open Approach (ICD-10-PCS; principal; 2016-09-24)
PROC: 3E033VJ Introduction of Other Hormone into Peripheral Vein, Percutaneous Approach (ICD-10-PCS; 2016-09-24)
DX: O14.14 Severe pre-eclampsia complicating childbirth (principal); Z68.42 Body mass index [BMI] 45.0-49.9, adult; N99.61 Intraoperative hemorrhage and hematoma of a genitourinary system organ or structure complicating a genitourinary system procedure; O24.429 Gestational diabetes mellitus in childbirth, unspecified control; O61.0 Failed medical induction of labor; Z37.0 Single live birth; O99.214 Obesity complicating childbirth; Z3A.36 36 weeks gestation of pregnancy; E66.01 Morbid (severe) obesity due to excess calories; O99.02 Anemia complicating childbirth
CPT/HCPCS: 36415; 59025; 80053; 80307; 81001; 82570; 82805; 83036; 84156; 84550; 85025; 85027; 87086; 88307; 94150; 94664; 99285; G0481; J0690; J1170; J2274; J2405; J2540; J2590; J3010; J3475; J7120; J7613